=== PATIENT | male | born 1950 | race Caucasian/White ===

== ENCOUNTER 2021-11-24 11:08 | Emergency (ER) | payer OTHER ==
--- OUTSIDE RECORDS SUMMARY | 2021-11-24 11:12 | XMS REPORT | Continuity of Care Document ---
:1950 Author Organization [facility] t Address [address] [place] [id number] Care Team Providers Name Role Phone RYAN, Oli Primary Care Physician Unavailable BARRETT LUNA Attending Clinician Unavailable Barrett Luna MD Attending Clinician Oli Malagon MD Attending Clinician Rory BRAMBILA Attending Clinician Sidney BRAMBILA, K.H. Attending Clinician Deepthi Patton Attending Clinician Unavailable Deepthi Patton Admitting Clinician Unavailable Payers Payer Name Policy Type Policy Number Effective Date Expiration Date S ource MEDICARE PART A [id number] 2000 \T\ B 00:00:00 MCR MCR [id number] Problems Condition Condition Condition Status Onset Resolution Last Treating Co mments Source Name Details Category Date Date Treatment Clinician Date Heart Heart Disease Active Univers failure failure 8-06 ity of 00:00: [place] [facility] Troponin I Troponin I Disease Active U nivers above above 8-06 [place] of [place] Systolic Systolic Disease Active Unive rs CHF, acute CHF, acute 8-05 it y of [place] chronic [place] JANUARY (acute JANUARY (acute Disease Active U nivers kidney kidney 5-26 ity of injury) injury) 00:00: [place] [id number] Medical Branch 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 Added automatic ally from request for surgery [id number] Combined Combined Disease Active Overview: Un ailyn forms of forms of 7-14 Formattin ity of age-relate age-relate 00:00: g of this [place] d cataract d cataract 00 note Me dical of both of both might be Branch eyes eyes different from the original. Added automatic ally from request for surgery [id number] [place] Disease Active Univers frequently frequently 3-01 it y of 00:00: [place] [facility] Opioid Opioid Disease Active 2018-07 Univers intoxicati intoxicati 0-17 it y of on on 00:00: [place] [facility] Nonischemi Nonischemi Disease Active 2018-07 U nivers c c 0-17 ity of cardiomyop cardiomyop 00:00: [place] [facility] Branch Nonobstruc Nonobstruc Disease Active 2018-07 U nivers tive tive 0-17 ity of atheroscle atheroscle 00:00: [place]sis of rosis of 00 Medica l coronary coronary Branch artery artery PAF PAF Disease Active Univers (paroxysma (paroxysma 7-24 it y of l atrial l atrial 00:00: [place] fibrillati fibrillati 00 Me dical on) on) Branch Acute on Acute on Disease Active Unive rs chronic chronic 7-24 ity of systolic systolic 00:00: [place] and and 00 Medical diastolic diastolic Bran ch heart heart failure, failure, NYHA class NYHA class 3 3 Acute on Acute on Disease Active Unive rs chronic chronic 7-24 ity of diastolic diastolic 00:00[place] congestive congestive 00 Me dical heart heart Branch failure failure CHF CHF Disease Active Univers exacerbati exacerbati 7 it y of on on 00:00: [place] 00 Medical Branch Chest pain Chest pain Disease Active U nivers 2-19 ity of 00:00: [place] 00 Medical Branch NSTEMI NSTEMI Disease Active Univers (non-ST (non-ST 2-19 ity of elevated elevated 00:00: [place] myocardial myocardial 00 Me dical infarction infarction Br anch ) ) Elevated Elevated Disease Active Unive rs troponin I troponin I 2-18 it y of level level 00:00: [place] 00 Medical Branch Dyslipidem Dyslipidem Disease Active U nivers ia ia 2-18 ity of 00:00: [place] 00 Medical Branch Chronic Chronic Disease Active Univers anticoagul anticoagul 2-18 it y of ation ation 00:00: Medical Branch Myocardial Myocardial Disease Active U nivers infarct infarct 2-18 ity of 00:00: [place] 00 Medical Branch Atypical Atypical Disease Active Unive rs chest pain chest pain 2-17 it y of 00:00: [place] 00 Medical Branch Care plan Care plan Disease Active Overview: Univers discussed discussed 08-24 Formattin i ty of with with 00:00: g of this [place] patient patient 00 note Medical might be Branch different from the original. Care plan discussed with patient on visit with Dr.Colber curiel Surgery, Surgery, Disease Active Unive rs elective elective 6-22 ity of 00:00: [place] 00 Medical Branch Post-opera Post-opera Disease Active U nivers tive state tive state 6-07 it y of 00:00: [place] 00 [facility] Adrenal Adrenal Disease Active Univers mass, left mass, left 4- it y of 00:00: [place] 00 Medical Branch Hematoma Hematoma Disease Active Unive rs of hip of hip 4- ity of 00:00: [place] 00 Medical Branch Toxic Toxic Disease Active Univers metabolic metabolic 3-31 ity of encephalop encephalop 00:00: [place] 00 Medical Branch Bilateral Bilateral Disease Active Uni vers renal renal 3-06 ity of cysts cysts 00:00: [place] [facility] Kidney Kidney Disease Active Univers stones stones 3-06 ity of 00:00: [place] 00 Medical Branch Hepatomega Hepatomega Disease Active U nivers ly ly 3-06 ity of 00:00: [place] [facility] Syncope Syncope Disease Active 2015-07 Univers 2- ity of 00:00: [place] [facility] Recurrent Recurrent Disease Active 2015-07 Uni vers UTI UTI 0-03 ity of 00:00: [place] 00 Medical Branch History of History of Disease Active U nivers psychosis psychosis 9-30 ity of 00:00: [place] [facility] Depression Depression Disease Active U nivers 9-30 ity of 00:00: [place] 00 Medical Branch Altered Altered Disease Active Univers mental mental 8- ity of status status 00:00: [place] [facility] Branch Hip Hip Disease Active Univers fracture fracture 6-07 ity of 00:00: [place] 00 [facility] Branch Hip fx Hip fx Disease Active Univers 6-06 ity of 00:00: [place] 00 Medical Branch Actinic Actinic Disease Active Univers keratosis keratosis 7- ity of 00:00: [place] 00 Medical Branch Personal Personal Disease Active Unive rs history of history of 7 it y of other other 00:00: [place] malignant malignant 00 Medi [facility] neoplasm neoplasm Branch of skin of skin Essential Essential Disease Active Uni vers hypertensi hypertensi it y of on on [facility] NAT NAT Disease Active Univers (obstructi (obstructi it y of ve sleep ve sleep [place] apnea) apnea) Medical Branch Chronic Chronic Disease Active Univers pain pain ity of [facility] Coronary Coronary Disease Active Unive rs artery artery ity of disease disease [place] involving involving Medi [place] Branch coronary coronary artery of artery of [place] heart with heart with angina angina pectoris pectoris Dementia Dementia Disease Active Unive rs ity of [facility] COPD COPD Disease Active Univers (chronic (chronic ity of obstructiv obstructiv [place] Medical pulmonary pulmonary Bran ch disease) disease) Chronic Chronic Disease Active Univers a-fib a-fib ity of [facility] Iron Iron Disease Active Univers deficiency deficiency it y of anemia anemia [facility] Type 2 Type 2 Disease Active Univers diabetes diabetes ity of mellitus mellitus [place] with with Medical complicati complicati Br anch on, on, without without long-term long-term current current use of use of insulin insulin Hyperlipid Hyperlipid Disease Active U nivers emia emia ity of [facility] Stroke Stroke Disease Active Univers ity of [facility] Allergies, Adverse Reactions, Alerts Allergy Allergy Status Severity Reaction(s) Onset Inactive Treating Comm ents Source Name Type Date Date Clinician ADHESIVE DRUG Active Rash Univers TAPE-DOYLE 7- ity of ICONES 00:00: [place] 00 [facility] Adhesive Propensi Active Rash Univer s Tape-Doyle ty to 01-20 ity of icones adverse 00:00: [place] reaction 00 [facility] Social History Social Habit Start Date Stop Date Quantity Comments Source Exposure to 2021-11-06 2021-11-16 Not sure [facility] SARS-CoV-2 (event) 00:00:00 08:05:00 [place] [facility] Alcohol intake 2021-11-16 2021-11-16 Current University of 00:00:00 00:00:00 non-drinker of [facility] alcohol [place] (finding) Tobacco use and 2016-04-14 2016-04-14 Former user Universi ty of exposure 00:00:00 00:00:00 [facility] Cigarettes smoked 2016-04-14 2016-04-14 Univers ity of current (pack per 00:00:00 00:00:00 ) - Reported Branch Cigarette 2016-04-14 2016-04-14 University of pack-years 00:00:00 00:00:00 [facility] Tobacco Comment 2016-04-14 2016-04-14 Quit smoking 15 Univ ersity of 00:00:00 00:00:00 years ago, quit [place] Med ical chewing tobacco Branch 10 years ago Sex Ass[birth year] Universit y of 00:00:00 00:00:00 [facility] Smoking Status Start Date Stop Date Source Former smoker 2016-04-14 00:00:00 2016-04-14 00:00:00 Universi ty of [place] [facility] Medications Ordered Filled Start Stop Current Ordering Indication Dosage Frequency Signature Comments Components Source Medication Medication Date Date Medication? Clinician (SIG) Name Name aspirin 81 Yes 81mg Take 81 mg U nivers mg chewable 5-04 by mouth ity of tablet 08:28: daily. [place] [facility] Branch CHOLECALCIF Yes 1999[iU Take 2,000 Univers SARA, 5-04 ] Int'l ity of VITAMIN D3, 08:28: Units by Gigi duncan (D3-2000 03 mouth Medical ORAL) daily. Branch prednisoLON Yes [id number] 1[drp] Place 1 Univers E acetate 1 4-21 [id number] Drop in ity of % 00:00: right eye [place] ophthalmic 00 4 (four) Medic al suspension times Branch drops daily. ELIQUIS 5 Yes TAKE 1 Univer s mg tablet 3-02 TABLET BY ity o f 00:00: MOUTH [place] 00 TWICE A Medical DAY Branch POLYETHYLEN Yes [id number] MIX 17 Univers E GLYCOL 3-01 GRAMS IN 4 ity o f 3350 17 00:00: [employer] [place] gram/dose 00 WATER AND Medic al powder TAKE BY Branch MOUTH DAILY KCL 20 mEq Yes [id number] TAKE 1 Univers tablet 1-07 TABLET BY ity of 00:00: MOUTH [place] 00 EVERY DAY Medical Branch atorvastati 2020-07 Yes [id number] 20mg Take 1 Univers n 20 mg 2-31 tablet by ity of tablet 00:00: mouth at [place] 00 bedtime. Medical Branch MYRBETRIQ 2020-07 Yes [id number] TAKE 1 U nivers 25 mg 2-16 TABLET BY ity of tablet 00:00: MOUTH [place] 00 EVERY DAY Medical Branch metformin 2020-07 Yes [id number] 1000mg Take 2 Univers ER 500 mg 1-15 tablets by ity of 24 hr 00:00: mouth 2 [place] tablet 00 (two) Medical times [place] daily with meals. metOLazone 2020-07 Yes [id number] TAKE 1 Univers 2.5 mg 1-15 TABLET BY ity of tablet 00:00: MOUTH [place] 00 TWICE Medical WEEKLY Branch Sunday and sunday FENOFIBRATE 2020-07 Yes [id number] TAKE 1 Univers 54 mg 0-11 TABLET BY ity of tablet 00:00: MOUTH [place] 00 EVERY DAY Medical Branch DIGOXIN 125 2020-07 Yes TAKE 1 Univ ers mcg (0.125 0-11 TABLET BY ity of mg) tablet 00:00: MOUTH [place] 00 EVERY DAY Medical Branch MORPHINE Yes Indication Uni vers SULFATE 8-08 s: ity of (MORPHINE, 13:08: morphine [place] BULK, MISC) 40 pump, Medical unknown Branch rate OXcarbazepi Yes 300mg Take 300 U nivers ne 8-08 mg by ity of (TRILEPTAL) 13:08: mouth 2 [place] 300 mg 40 (two) Medical tablet times Branch daily. ALBUTEROL Yes [id number] INHALE 2 Univers 90 7-30 PUFFS ity of mcg/actuati 00:00: EVERY 4 [place] on inhaler 00 (FOUR) Medical HOURS Branch NEEDED FOR WHEEZING OR SHORTNESS OF BREATH. mirabegron Yes [id number] 50mg Take 1 U nivers (MYRBETRIQ) 3-17 tablet by ity of 50 mg 00:00: mouth [place] tablet 00 daily. Medical Branch lactulose Yes [id number] TAKE 30 Univers 10 gram/15 3-07 MILLILITER ity of mL solution 00:00: S BY MOUTH [place] 00 EVERY DAY Medical NEEDED Branch FOR CONSTIPATI ON FLUoxetine Yes [id number] 40mg Take 1 Univers 40 mg 2-18 capsule by ity of capsule 00:00: mouth [place] 00 daily. Medical Branch memantine Yes 1{tbl} Take 1 Univ ers 10 mg 4-25 tablet by ity of tablet 00:00: mouth 2 [place] 00 (two) Medical times Branch daily. Immunizations Ordered Filled Immunization Date Status Comments [facility] e Immunization Name Name SARS-COV-2 COVID-19 2020-12-22 Completed Unive rsity of PFIZER VACCINE 00:00:00 [facility] SARS-COV-2 COVID-19 2020-12-02 Completed Unive rsity of PFIZER VACCINE 00:00:00 [facility] Td 2016-04-26 Completed University of 00:00:00 [facility] Vital Signs Vital Name Observation Time Observation Value Comments Source Body weight 2021-11-16 13:27:[address] [facility] BMI 2021-11-16 13:27:00 27.26 kg/m2 [facility] Procedures This patient has no known procedures. Encounters Start End Encounter Admission Attending Care Care Encounter Source Date/Time Date/Time Type Type Clinicians Facility Department ID 2022-01-23 2022-01-23 [facility] [id number] Univers 14:15:00 14:15:00 [facility] [id number] [facility] 2022-01-23 2022-01-23 [facility] [id number] Univers 14:15:00 14:15:00 [facility] 2021-11-16 2021-11-16 Office [facility] [id number] Univers 08:30:00 08:45:00 [facility] [id number] it minnie Barrettrodrick DIEZ [id number] [place] [facility] [phone] [address] [facility] 2020-07-12 2020-07-12 [facility] [id number] 00:00:00 00:00:00 [facility] [id number] [place] [id number] Professio [phone] nal 044 Office Building One 2020-07-12 2020-07-12 Refmaria a Valadez [facility] [id number] 00:00:00 00:00:00 Isaias Shell [id number] Jaylon [id number] Professio [phone] nal 059 [facility] 2020-06-16 2020-06-16 [facility] [id number] 00:00:00 00:00:00 Chris Shell [id number] [place]lon [id number] Professio [phone] nal 059 Building 2020-06-14 2020-06-14 Case Manas [facility] [id number] 00:00:00 00:00:00 Management [facility] [id number] [place] [id number] Professio [phone] nal 044 Office [facility] 2020-06-14 2020-06-14 Telephone BARRETT Malagon [id number] 00:00:00 00:00:00 [facility] [id number] [place] [id number] Professio [phone] nal [facility] Office Building One 2020-06-04 2020-06-04 Office BARRETT Malagon [id number] 08:21:06 09:40:59 Visit [facility] [id number] [place] [id number] Professio [phone] nal 044 Office Building One 2019-05-02 2019-05-13 Inpatient 3 ROBERT Patton KAYCEE [id number]- 2019 ENCPL 19:53:00 11:14:00 Deepthi 1018 Results Test Description Test Time Test Comments Results Result Comments Source TROPONIN-I 2019-05-13 08:47:00 Test Item Value Reference Range Interpretation Comme nts TROPONIN-I (test code = 0.063 NG/ML 0.000-0.045 HH Nega tive: </= 0.045 Positive: TROPI) >/= 0.046 Corre lation with serial results, other cardiac markers, and cl inical findings is necessary to determine the clinical signi ficance of this result. Quantit ative results using different methodologies should not be c ompared to one another as nume rical results may varyby meth od.
[2021-11-24] MEDS ORDERED: TETANUS & DIPHTHERIA TOX,ADULT 0.5 ML VIAL ONE (11:24)
--- NOTE | 2021-11-24 11:53 | RAD REPORT ---
EXAM DESCRIPTION: CT - CTHCSPWOC - 11/24/2021 11:36 am CLINICAL HISTORY: Trauma, head and neck injury. fall COMPARISON: No comparisons TECHNIQUE: Axial 5 mm thick images of the head were obtained. Axial 2 mm thick images of the cervical spine were obtained with sagittal and coronal reconstruction images generated and reviewed. All CT scans are performed using dose optimization technique as appropriate and may include automated exposure control or mA/KV adjustment according to patient size. FINDINGS: CT HEAD WITHOUT CONTRAST: No acute hemorrhage, hydrocephalus or extra-axial collection is identified.Remote large right occipit al lobe infarct. Cerebral atrophy. Chronic small vessel ischemic changes. Remote right basal ganglia lacunar infarct suspected. Ethmoid air cell thickening is present.The calvarium is intact. CT CERVICAL SPINE WITHOUT CONTRAST: Presumed remote posttraumatic changes at the cervical spine including 6 millimeters anterolisthesis o f C2 on C3. 5 millimeters anterolisthesis of C4 on C5 however there is fusion across C4-5 and across portions of C5-6 which is chronic. Cervical spondylosis is noted. Emphysema in the lung apices. No ce rvical chain lymphadenopathy. IMPRESSION: No acute intracranial or cervical spine findings. Chronic changes as noted above.
--- NOTE | 2021-11-24 12:05 | ER ---
Nurse's Notes [facility] Name: Umer Hammonds Age: 71 yrs Sex: Male : 1950 Arrival Date: 11/24/2021 Time: 11:12 Bed 5 Private MD: Diagnosis: Fall on same level, unspecified;Skin tear Presentation: 11/24 11:13 Chief complaint: EMS states: pt fell while walking down the street. pt uses a walker [facility] and states that he was not dizzy just tripped. Coronavirus screen: Vaccine status: Patient reports receiving the 2nd dose of the covid vaccine. Client denies travel out of the [place] in the last 14 days. Ebola Screen: Patient negative for fever greater than or equal to 101.5 degrees Fahrenheit, and additional compatible Ebola Virus Disease symptoms Patient denies exposure to infectious person. Patient denies travel to an Ebola-affected area in the 21 days before illness onset. Initial Sepsis Screen: Does the patient meet any 2 criteria? No. Patient's initial sepsis screen is negative. Does the patient have a suspected source of infection? No. Patient's initial sepsis screen is negative. Risk Assessment: Do you want to hurt yourself or someone else? Patient reports no desire to harm self or others. Onset of symptoms was November 24, 2021. 11:13 Method Of Arrival: EMS: [facility] 11:13 Acuity: RAUL 4 6 Triage Assessment: 11:17 General: Appears in no apparent distress. Behavior is calm, cooperative. Pain: Denies [facility] pain. Historical: - Allergies: 11:17 Latex, Natural Rubber; [facility] - Immunization history:: Adult Immunizations unknown. - Social history:: Smoking status: Patient denies any tobacco usage or history of. Screenin:19 Abuse screen: Denies threats or abuse. Nutritional screening: No deficits noted. [facility] Tuberculosis screening: No symptoms or risk factors identified. Fall Risk Fall in past 12 months (25 points). Gait- Impaired (20 pts.). Mental Status- Oriented to own ability (0 pts). Assessment: 11:18 General: Appears in no apparent distress. Behavior is calm, cooperative. Pain: Denies [facility] pain. 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 wound cleaned and redressed. pt tolerated well. Vital Signs: 11:13 BP 124 / 75; Pulse 66; Resp 17; Pulse Ox 100% ; Weight 113.4 kg; Height 5 ft. 10 in. jh6 (177.80 cm); Pain 0/10; 12:20 BP 136 / 74; Pulse 64; Resp 17; Pulse Ox 100% ; Pain 0/10; jh6 11:13 Body Mass Index 35.87 (113.40 kg, 177.80 cm) 6 ED Course: 11:12 Patient arrived in ED. 5 11:12 Cara Aleman, RN is Primary Nurse. 6 11:12 Patient has correct armband on for positive identification. Bed in low position. Call [facility] light in reach. Side rails up X2. Warm blanket given. Pulse ox on. NIBP on. 11:14 Geronimo Anderson DO is Attending Physician. ms3 11:16 Triage completed. jh6 11:20 Bandage applied. jh6 11:20 No provider procedures requiring assistance completed. 6 11:[address] via stretcher. jh6 11:38 CT Head C Spine In Process Unspecified. EDMS Administered Medications: 11:26 Drug: Tetanus Toxoid,Adsorbed 0.5 ml {Spanish Translator: [employer]. Exp: 09/24/2023. Lot vg1 #: [id number]. } Route: IM; Site: left deltoid; Outcome: 12:05 Discharge ordered by . ms3 12:27 Patient left the ED. kj1 Signatures: Dispatcher [employer] EDMS Sravanthi Contreras [facility] Susan Winston kj1 Caprice Stallworth RN RN Geronimo Moura DO DO ms3 Cara Aleman, RN RN 6
--- NOTE | 2021-11-24 12:06 | EDPHYS ---
Physician Documentation [facility] Name: Umer Hammonds Age: 71 yrs Sex: Male : 1950 Arrival Date: 11/24/2021 Time: 11:12 Bed 5 Private MD: ED Physician Geronimo Anderson HPI: 11/24 12:06 This 71 yrs old Male presents to ER via EMS with complaints of Fall. ms3 12:06 Details of fall: The patient fell from an upright position, while standing. Onset: The ms3 symptoms/episode began/occurred acutely, 020 minute(s) ago. Associated injuries: The patient sustained right arm, abrasion. Severity of symptoms: At their worst the symptoms were very mild, in the emergency department the symptoms are unchanged. Historical: - Allergies: 11:17 Latex, Natural Rubber; jh6 - Immunization history:: Adult Immunizations unknown. - Social history:: Smoking status: Patient denies any tobacco usage or history of. ROS: 12:09 Constitutional: Negative for fever, and chills. Eyes: Negative for injury, pain, ms3 redness, and discharge, Neck: Negative for injury, pain, and swelling, Cardiovascular: Negative for chest pain, and palpitations. Respiratory: Negative for shortness of breath, cough, wheezing, and pleuritic chest pain, Abdomen/GI: Negative for abdominal pain, nausea, vomiting, diarrhea, and constipation, MS/Extremity: Negative for injury and deformity. 12:09 Skin: Positive for abrasion(s). Exam: 12:06 Head/Face: Normocephalic, atraumatic. Eyes: Pupils equal round and reactive to light, ms3 extra-ocular motions intact. Lids and lashes normal. Conjunctiva and sclera are non-icteric and not injected. Periorbital areas with no swelling, redness, or edema. Chest/axilla: Normal chest wall appearance and motion. Nontender with no deformity. Cardiovascular: Regular rate and rhythm with a normal S1 and S2. No gallops, murmurs, or rubs. Normal PMI, no JVD. No pulse deficits. Respiratory: Lungs have equal breath sounds bilaterally, clear to auscultation and percussion. No rales, rhonchi or wheezes noted. No increased work of breathing, no retractions or nasal flaring. Abdomen/GI: Soft, non-tender, with normal bowel sounds. No distension or tympany. No guarding or rebound. No evidence of tenderness throughout. Back: No spinal tenderness. No costovertebral tenderness. Full range of motion. 12:06 Skin: injury, abrasion(s), small abrasion noted, of the right arm. Vital Signs: 11:13 BP 124 / 75; Pulse 66; Resp 17; Pulse Ox 100% ; Weight 113.4 kg; Height 5 ft. 10 in. jh6 (177.80 cm); Pain 0/10; 12:20 BP 136 / 74; Pulse 64; Resp 17; Pulse Ox 100% ; Pain 0/10; jh6 11:13 Body Mass Index 35.87 (113.40 kg, 177.80 cm) 6 MDM: 11:14 Patient medically screened. ms3 12:06 Differential diagnosis: abrasion, closed head injury, contusion, fracture. Data ms3 reviewed: vital signs, nurses notes, radiologic studies, CT scan. Counseling: I had a detailed discussion with the patient and/or guardian regarding: the historical points, exam findings, and any diagnostic results supporting the discharge/admit diagnosis, radiology results, the need for outpatient follow up, to return to the emergency department if symptoms worsen or persist or if there are any questions or concerns that arise at home. 11/24 11:15 Order name: CT Head C Spine; Complete Time: 11:57 ms3 Administered Medications: 11:26 Drug: Tetanus Toxoid,Adsorbed 0.5 ml {Film Numberer: [employer]. Exp: 09/24/2023. Lot vg1 #: [id number]. } Route: IM; Site: left deltoid; Disposition Summary: 11/24/21 12:05 Discharge Ordered Location: Home ms3 Condition: Stable ms3 Diagnosis - Fall on same level, unspecified ms3 - Skin tear ms3 Followup: ms3 - With: Private Physician - When: 2 - 3 days - Reason: Recheck today's complaints Discharge Instructions: - Discharge Summary Sheet ms3 - Fall Prevention in the Home, Adult ms3 - Skin Tear ms3 Forms: - Medication Reconciliation Form ms3 - Thank You Letter ms3 - Antibiotic Education ms3 - Prescription Opioid Use ms3 Signatures: Dispatcher [employer] Caprice Melton RN RN vg1 Geronimo Anderson DO DO ms3 Cara Aleman, RN RN jh6 Corrections: (The following items were deleted from the chart) 12:09 12:06 Unable to obtain ROS due to baseline dementia, ms3 ms3
[2021-11-24 12:35] VITALS: O2SAT 100
[2021-11-24 12:37] VITALS: BP 136/74
== END 2021-11-24 12:27 | disposition home or self-care (01) ==
LOC: ER 11:08
DX: S40.811A Abrasion of right upper arm, initial encounter (principal); W18.30XA Fall on same level, unspecified, initial encounter; Z23 Encounter for immunization; Z91.040 Latex allergy status; Z91.048 Other nonmedicinal substance allergy status
CPT/HCPCS: 70450; 72125; 90471; 90714; 99284

== ENCOUNTER 2022-01-25 03:21 | Emergency (ER) | payer OTHER ==
[2022-01-25 04:54] LABS: Absolute Lymphocytes (CBC) 0.6 K/uL (0.7-4.9); Hematocrit 36.6 % (39.6-49.0); Lymphocytes % 6.2 % (15.3-44.8); MCV 83.1 fL (80-100); MPV 7.9 fL (7.6-11.3)
[2022-01-25 04:55] LABS: Protime INR 1.05
[2022-01-25 05:06] LABS: Albumin 3.6 g/dL (3.4-5.0); Bilirubin Direct 0.1 mg/dL (0-0.2); Bilirubin Total 0.4 mg/dL (0.2-1.0); Potassium 3.5 mmol/L (3.5-5.1)
--- NOTE | 2022-01-25 05:54 | EDPHYS ---
Physician Documentation [facility] Name: Umer Hammonds Age: 71 yrs Sex: Male : 1950 Arrival Date: 01/25/2022 Time: 03:29 Bed 20 Private MD: ED Physician Kev Montague HPI: 01/25 03:30 This 71 yrs old Male presents to ER via EMS with complaints of Fall. mh7 03:30 Details of fall: The patient fell from a supine position, out of bed. Onset: The 7 symptoms/episode began/occurred today, at an unknown time. Associated injuries: The patient sustained injury to the head, abrasion, contusion, hematoma. Severity of symptoms: At their worst the symptoms were moderate, earlier today, in the emergency department the symptoms have improved, moderately. The patient has experienced similar episodes in the past, several times. Historical: - Allergies: 03:40 Latex, Natural Rubber; bb - Home Meds: 03:40 apixaban 5 mg oral tab 1 tab 2 times per day [Active]; aspirin 81 mg Oral chew 1 tab bb once daily [Active]; atorvastatin 20 mg oral tab 1 tab once daily [Active]; cholecalciferol (vitamin D3) 1,000 unit oral 2 tab twice a day [Active]; cyanocobalamin (vitamin B-12) 1,000 mcg oral cap daily [Active]; fluoxetine 40 mg Oral cap 1 cap once daily [Active]; furosemide 40 mg Oral tab 1 tab 2 times per day [Active]; metolazone 2.5 mg oral tab 1 tab once daily [Active]; Namenda 10 mg oral tab 1 tab 2 times per day [Active]; oxcarbazepine 300 mg oral tab 1 tab 2 times per day [Active]; polyethylene glycol 3350 17 gram oral pwpk 1 packet once daily [Active]; tizanidine 4 mg oral tab 1 tab twice a day [Active]; 03:50 spironolactone 25 mg Oral tab 1 tab 2 times per day [Active]; sennosides 8.6 mg oral bb tab 2 tabs twice a day [Active]; - PMHx: 03:40 Congestive heart failure; Chronic obstructive lung disease; Depressive disorder; bb 03:47 Diabetes mellitus; Dementia; bb - PSHx: 03:47 Morphine pump; bb - Immunization history: Last tetanus immunization: unknown. - Social history:: Smoking status: unknown. ROS: 03:30 Constitutional: Negative for fever, chills, and weight loss, Eyes: Negative for injury, mh7 pain, redness, and discharge, ENT: Negative for injury, pain, and discharge, Neck: Negative for injury, pain, and swelling, Cardiovascular: Negative for chest pain, palpitations, and edema, Respiratory: Negative for shortness of breath, cough, wheezing, and pleuritic chest pain, Abdomen/GI: Negative for abdominal pain, nausea, vomiting, diarrhea, and constipation, Back: Negative for injury and pain, : Negative for injury, bleeding, discharge, and swelling, Neuro: Negative for headache, weakness, numbness, tingling, and seizure, Psych: Negative for depression, anxiety, suicide ideation, homicidal ideation, and hallucinations, Allergy/Immunology: Negative for hives, rash, and allergies, Endocrine: Negative for neck swelling, polydipsia, polyuria, polyphagia, and marked weight changes. Exam: 03:30 Constitutional: This is a well developed, well nourished patient who is awake, alert, mh7 and in no acute distress. 03:30 Eyes: Pupils equal round and reactive to light, extra-ocular motions intact. Lids and lashes normal. Conjunctiva and sclera are non-icteric and not injected. Cornea within normal limits. Periorbital areas with no swelling, redness, or edema. ENT: Nares patent. No nasal discharge, no septal abnormalities noted. Tympanic membranes are normal and external auditory canals are clear. Oropharynx with no redness, swelling, or masses, exudates, or evidence of obstruction, uvula midline. Mucous membranes moist. Neck: Trachea midline, no thyromegaly or masses palpated, and no cervical lymphadenopathy. Supple, full range of motion without nuchal rigidity, or vertebral point tenderness. No Meningismus. Chest/axilla: Normal chest wall appearance and motion. Nontender with no deformity. No lesions are appreciated. Cardiovascular: Regular rate and rhythm with a normal S1 and S2. No gallops, murmurs, or rubs. Normal PMI, no JVD. No pulse deficits. Respiratory: Lungs have equal breath sounds bilaterally, clear to auscultation and percussion. No rales, rhonchi or wheezes noted. No increased work of breathing, no retractions or nasal flaring. Abdomen/GI: Soft, non-tender, with normal bowel sounds. No distension or tympany. No guarding or rebound. No evidence of tenderness throughout. Back: No spinal tenderness. No costovertebral tenderness. Full range of motion. 03:30 Psych: Awake, alert, with orientation to person, place and time. Behavior, mood, and affect are within normal limits. 03:30 Head/face: Noted is abrasion(s), that are mild, of the top of head, contusion, that is superficial, of the top of head and forehead, hematoma, that is mild, of the forehead. 03:30 Musculoskeletal/extremity: Extremities: noted in the right hand: abrasion, ROM: intact in all extremities, Circulation is intact in all extremities. Sensation intact. Compartment Syndrome exam of affected extremity: is normal. no pain, no numbness, no tingling, no sensation deficit, no palor, no weak pulses, Joints: All joints appear normal with full range of motion. Tendon exam: specific tendon testing normal through active and passive range of motion 03:30 Skin: injury, abrasion(s), small abrasion noted, of the top of head and right hand, contusion(s), that are superficial, of the face. 03:30 Neuro: Orientation: is normal, Mentation: is normal, Memory: is normal, Cranial nerves: grossly normal, Cerebellar function: is grossly normal, Motor: is normal, Sensation: no obvious gross deficits, Gait: not tested. seizure activity, is not displayed by the patient, Abnormal movements: there are no abnormal movements. Vital Signs: 03:31 BP 116 / 78; Pulse 95; Resp 16 S; Temp 98.1(TE); Pulse Ox 96% on R/A; Weight 81.65 kg bb (R); Height 6 ft. 1 in. (185.42 cm) (R); Pain 0/10; 04:08 BP 130 / 98; Pulse 72; Resp 18 S; Pulse Ox 96% on R/A; bb 05:22 BP 108 / 67; Pulse 76; Resp 16 S; Pulse Ox 97% on R/A; bb 06:10 BP 130 / 77; Pulse 67; Resp 16 S; Pulse Ox 100% on R/A; bb 03:31 Body Mass Index 23.75 (81.65 kg, 185.42 cm) bb Ranson Coma Score: 03:31 Eye Response: spontaneous(4). Verbal Response: oriented(5). Motor Response: obeys bb commands(6). Total: 15. Trauma Score (Adult): 03:31 Eye Response: spontaneous(1); Verbal Response: oriented(1); Motor Response: obeys bb commands(2); Systolic BP: > 89 mm Hg(4); Respiratory Rate: 10 to 29 per min(4); Ranson Score: 15; Trauma Score: 12 04:06 Eye Response: spontaneous(1); Verbal Response: oriented(1); Motor Response: obeys bb commands(2); Systolic BP: > 89 mm Hg(4); Respiratory Rate: 10 to 29 per min(4); Alexia Score: 15; Trauma Score: 12 MDM: 05:50 Differential diagnosis: abrasion, closed head injury, contusion, fracture, sprain. Data [facility] reviewed: vital signs, nurses notes, EMS record, old medical records, lab test result(s), CBC, electrolytes, radiologic studies, CT scan, plain films. Data interpreted: Pulse oximetry: on room air is 97 %. Interpretation: normal. Counseling: I had a detailed discussion with the patient and/or guardian regarding: the historical points, exam findings, and any diagnostic results supporting the discharge/admit diagnosis, lab results, radiology results, the need for outpatient follow up. Response to treatment: the patient's symptoms have markedly improved after treatment. 05:54 Patient medically screened. [facility] 01/25 03:42 Order name: Basic Metabolic Panel; Complete Time: 05:10 [facility] 01/25 03:42 Order name: CBC with Diff; Complete Time: 05:10 [facility] 01/25 03:42 Order name: Type And Screen; Complete Time: 05:34 [facility] 01/25 03:42 Order name: LFT's; Complete Time: 05:10 [facility] 01/25 03:42 Order name: Protime (+inr); Complete Time: 05:10 [facility] 01/25 03:42 Order name: Ptt, Activated; Complete Time: 05:10 [facility] 01/25 03:42 Order name: CT Head C Spine [facility] 01/25 03:42 Order name: Labs collected and sent; Complete Time: 04:36 7 01/25 03:42 Order name: Hand Right 3 View XRAY 7 01/25 05:55 Order name: Splint - Wrist; Complete Time: 06:09 [facility] Administered Medications: 06:09 Not Given (Physician Discretion): Tylenol 1000 mg PO once bb Disposition Summary: 01/25/22 05:54 Discharge Ordered Location: Home [facility] Problem: new [facility] Symptoms: have improved [facility] Condition: Stable mh7 Diagnosis - Fall from bed, initial encounter mh7 - Contusion of scalp - head 7 - Contusion of right hand - wrist(01/25/22 05:57) [facility] Followup: 7 - With: Private Physician - When: 1 - 2 days - Reason: Worsening of condition, Recheck today's complaints, Continuance of care, Re-evaluation by your physician Followup: [facility] - With: Montez Daigle MD - When: 1 - 2 days - Reason: Worsening of condition, Recheck today's complaints Discharge Instructions: - Discharge Summary Sheet 7 - Wrist Splint, Adult, Wsoz-qw-Ergf 7 - Hand Contusion, Xtfr-et-Ylja 7 - Abrasion, Spwo-wa-Ehck 7 - Fall Prevention in the Home, Adult, Pmzq-bn-Ikzr 7 - Facial or Scalp Contusion, [id number]-pk-[id number] 7 Forms: - Medication Reconciliation Form 7 - Thank You Letter 7 - Antibiotic Education 7 - Prescription Opioid Use 7 - SBAR form mw2 Signatures: Dispatcher [employer] Swati Olea RN RN bb Kev Montague MD MD 7 Corrections: (The following items were deleted from the chart) 03:52 03:40 Home Meds: sennosides 25 mg oral tab 1 tabs 2 times per day; bb bb 05:57 05:54 Contusion of right hand [place] [id number]
--- NOTE | 2022-01-25 05:54 | ER ---
Nurse's Notes [facility] Name: Umer Hammonds Age: 71 yrs Sex: Male : 1950 Arrival Date: 01/25/2022 Time: 03:29 Bed 20 Private MD: Diagnosis: Fall from bed, initial encounter;Contusion of scalp-head;Contusion of right hand-wrist Presentation: 01/25 03:31 Chief complaint: EMS states: they were toned out for report of pt having fallen around bb 0100 but then developed a large hematoma to forehead so they sent him to be evaluated pt is on blood thinners. Care prior to arrival: None. Mechanism of Injury: Fall. Trauma event details: Injury occurred in the [facility], Injury occurred: [facility]. 03:31 Acuity: RAUL 3 bb 03:31 Method Of Arrival: EMS: [facility] bb 03:40 Coronavirus screen: At this time, the client does not indicate any symptoms associated bb with coronavirus-19. Ebola Screen: No symptoms or risks identified at this time. Initial Sepsis Screen: Does the patient meet any 2 criteria? No. Patient's initial sepsis screen is negative. Does the patient have a suspected source of infection? No. Patient's initial sepsis screen is negative. Risk Assessment: Do you want to hurt yourself or someone else? Patient reports no desire to harm self or others. Onset of symptoms was January 25, 2022. Historical: - Allergies: 03:40 Latex, Natural Rubber; bb - Home Meds: 03:40 apixaban 5 mg oral tab 1 tab 2 times per day [Active]; aspirin 81 mg Oral chew 1 tab bb once daily [Active]; atorvastatin 20 mg oral tab 1 tab once daily [Active]; cholecalciferol (vitamin D3) 1,000 unit oral 2 tab twice a day [Active]; cyanocobalamin (vitamin B-12) 1,000 mcg oral cap daily [Active]; fluoxetine 40 mg Oral cap 1 cap once daily [Active]; furosemide 40 mg Oral tab 1 tab 2 times per day [Active]; metolazone 2.5 mg oral tab 1 tab once daily [Active]; Namenda 10 mg oral tab 1 tab 2 times per day [Active]; oxcarbazepine 300 mg oral tab 1 tab 2 times per day [Active]; polyethylene glycol 3350 17 gram oral pwpk 1 packet once daily [Active]; tizanidine 4 mg oral tab 1 tab twice a day [Active]; 03:50 spironolactone 25 mg Oral tab 1 tab 2 times per day [Active]; sennosides 8.6 mg oral bb tab 2 tabs twice a day [Active]; - PMHx: 03:40 Congestive heart failure; Chronic obstructive lung disease; Depressive disorder; bb 03:47 Diabetes mellitus; Dementia; bb - PSHx: 03:47 Morphine pump; bb - Immunization history: Last tetanus immunization: unknown. - Social history:: Smoking status: unknown. Screenin:31 Abuse screen: Denies threats or abuse. Tuberculosis screening: No symptoms or risk bb factors identified. 03:48 Nutritional screening: No deficits noted. Fall Risk Fall in past 12 months (25 points). bb Secondary diagnosis (15 points) dementia, impaired mobility, IV access (20 points). Ambulatory Aid- None/Bed Rest/Nurse Assist (0 pts). Gait- Normal/Bed Rest/Wheelchair (0 pts) Mental Status- Overestimates/Forgets Limitations (15 pts.). Total Ring Fall Scale indicates High Risk Score (45 or more points). Fall prevention measures have been instituted. Side Rails Up X 2 Placed Close to Nursing Station. Primary Survey: 03:31 NO uncontrolled hemorrhage observed. A: The client is awake and alert. The airway is bb patent. Breathing/Chest: Spontaneous respiratory effort, equal unlabored respirations, breath sounds clear bilaterally, regular pattern, symmetrical chest rise and fall. Circulation: No external hemorrhage present. Regular and strong central pulse, skin warm/dry/normal color. Disability Client is alert. 03:49 Exposure/Environment: There is no evidence of uncontrolled external bleeding. A warming bb method has been applied: A warm blanket has been provided to the patient. 04:06 Reassessment Alertness and Airway: Awake and alert. The airway is patent. Breathing: bb Spontaneous respiratory effort, equal unlabored respirations, breath sounds clear bilaterally, regular pattern with symmetrical chest rise and fall. Circulation: No external hemorrhage noted. Regular and strong central pulse, skin warm/dry/normal color. Disability: Alert. Secondary Survey: 03:31 HEENT: Head Other large hematoma to right side of forehead. Gastrointestinal: No bb deficits noted. : No deficits noted. Musculoskeletal: Circulation, motion, and sensation intact. Assessment: 03:31 General: Appears in no apparent distress. slender, Behavior is calm, cooperative. Pain: bb Denies pain. Neuro: Level of Consciousness is awake, alert, obeys commands, Oriented to person, place, situation. Cardiovascular: Capillary refill < 3 seconds Patient's skin is warm and dry. Respiratory: Respiratory effort is even, unlabored, Respiratory pattern is regular. GI: Abdomen is non-distended. : Genitalia appear normal. Derm: Skin is fragile, is thin, has skin tears on hands, right elbow, scalp Skin is pink, warm \T\ dry. Musculoskeletal: Circulation, motion, and sensation intact. 03:57 Reassessment: pt to CT scan via stretcher accompanied by vp information technology. bb 04:07 Reassessment: pt returned from CT scan via stretcher accompanied by vp information technology. bb 05:22 Reassessment: pt sleeping, eyes closed, resp unlabored, awaiting diagnostic results. bb 06:11 Reassessment: Patient is alert, oriented x 3, equal unlabored respirations, skin bb warm/dry/pink. splint applied to right wrist. Pt verbalized understanding of and agrees to plan of care discharge instructions given pt awaiting EMS for transportation. 06:21 Reassessment: report called to receiving nurse from [facility]. bb 06:42 Reassessment: EMS at bedside for transport of pt to [facility]. Pt is bb A\T\O x 3, resp unlabored, discharge packet given to EMS. Vital Signs: 03:31 BP 116 / 78; Pulse 95; Resp 16 S; Temp 98.1(TE); Pulse Ox 96% on R/A; Weight 81.65 kg bb (R); Height 6 ft. 1 in. (185.42 cm) (R); Pain 0/10; 04:08 BP 130 / 98; Pulse 72; Resp 18 S; Pulse Ox 96% on R/A; bb 05:22 BP 108 / 67; Pulse 76; Resp 16 S; Pulse Ox 97% on R/A; bb 06:10 BP 130 / 77; Pulse 67; Resp 16 S; Pulse Ox 100% on R/A; bb 03:31 Body Mass Index 23.75 (81.65 kg, 185.42 cm) bb Spickard Coma Score: 03:31 Eye Response: spontaneous(4). Verbal Response: oriented(5). Motor Response: obeys bb commands(6). Total: 15. Trauma Score (Adult): 03:31 Eye Response: spontaneous(1); Verbal Response: oriented(1); Motor Response: obeys bb commands(2); Systolic BP: > 89 mm Hg(4); Respiratory Rate: 10 to 29 per min(4); Spickard Score: 15; Trauma Score: 12 04:06 Eye Response: spontaneous(1); Verbal Response: oriented(1); Motor Response: obeys bb commands(2); Systolic BP: > 89 mm Hg(4); Respiratory Rate: 10 to 29 per min(4); Spickard Score: 15; Trauma Score: 12 ED Course: 03:29 Patient arrived in ED. mw2 03:30 Kev Montague MD is Attending Physician. 7 03:30 Swati Aldana, RN is Primary Nurse. bb 03:31 Patient has correct armband on for positive identification. Bed in low position. Call bb light in reach. Side rails up X2. Patient maintains SpO2 saturation greater than 95% on room air. Client placed on continuous cardiac and pulse oximetry monitoring. NIBP monitoring applied. 03:31 Patient maintains SpO2 saturation greater than 95% on room air. bb 03:32 Triage completed. 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 03:49 Thermoregulation: warm blanket given to patient. bb 03:59 Hand Right 3 View XRAY In Process Unspecified. EDMS 04:12 CT Head C Spine In Process Unspecified. EDMS 04:20 Initial lab(s) drawn, by me, sent to lab. Missed attempt(s): 20 gauge in right forearm. bb Bleeding controlled, band aid applied, catheter tip intact. 04:25 T\T\S collected, blood band applied to patient. Inserted saline lock: 22 gauge in left bb antecubital area, using aseptic technique. 04:30 Lab(s) recollected, by me, sent to lab. bb 05:55 Montez Daigle MD is Referral Physician. 7 06:10 Velcro wrist splint applied to right wrist. bb 06:11 No provider procedures requiring assistance completed. IV discontinued, intact, bb bleeding controlled, No redness/swelling at site. Pressure dressing applied. Administered Medications: 06:09 Not Given (Physician Discretion): Tylenol 1000 mg PO once bb Medication: 06:10 VIS not applicable for this client. bb Intake: 03:31 PO: 0ml; Total: 0ml. bb Outcome: 05:54 Discharge ordered by MD. manriquez 06:11 Discharged to to [facility] bb 06:11 Condition: stable 06:11 Discharge instructions given to patient, Instructed on discharge instructions, follow up and referral plans. Demonstrated understanding of instructions, follow-up care. 06:43 Patient left the ED. bb Signatures: Dispatcher [employer] Swati Olea RN RN bb Rory Streeter mw2 Kev Montague MD MD mh7 Corrections: (The following items were deleted from the chart) 03:52 03:40 Home Meds: sennosides 25 mg oral tab 1 tabs 2 times per day; krystal rice
[2022-01-25 06:56] VITALS: TEMP 98.1
[2022-01-25 07:01] VITALS: BP 130/77; O2SAT 100
--- NOTE | 2022-01-25 13:42 | RAD REPORT ---
EXAM DESCRIPTION: RAD - Hand Right 3 View - 01/25/2022 3:57 am CLINICAL HISTORY: The patient is 71 years old and is Male; trauma TECHNIQUE: Three views of the right hand. COMPARISON: No relevant prior studies available. FINDINGS: Bones/joints: No acute fracture. No dislocation. Chronic subchondral changes in the ulna/ulnar styloid. Mild degenerative changes in the hand. Soft tissues: Dorsal soft tissue swelling at the wrist. No radiopaque foreign body. IMPRESSION: Dorsal soft tissue swelling at the wrist. Electronically signed by: Hazel Pak MD 01/25/2022 4:43 AM CDT Due to temporary technical issues with the PACS/Fluency reporting system, reports are being signed by the in house radiologists without review as a courtesy to insure prompt reporting. The interpreting radiologist is fully responsible for the content of the report.
--- NOTE | 2022-01-25 13:44 | RAD REPORT ---
EXAM DESCRIPTION: CT - Head C Spine Mpr Wo Con - 01/25/2022 6:38 am CLINICAL HISTORY: The patient is 71 years old and is Male; trauma TECHNIQUE: Axial computed tomography images of the head/brain and cervical spine without intravenous contrast. Sagittal and coronal reformatted images were created and reviewed. This CT exam was pe rformed using one or more of the following dose reduction techniques: automated exposure control, a djustment of the mA and/or kV according to patient size, and/or use of iterative reconstruction techn ique. COMPARISON: November 24, 2021. FINDINGS: Brain: Mild age related periventricular white matter microangiopathic changes. 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 No hemorrhage. Ventricles: Unremarkable. No ventriculomegaly. Skull: No acute fracture. Sinuses: Unremarkable as visualized. No acute sinusitis. Mastoid air cells: Unremarkable as visualized. No mastoid effusion. Vertebrae: No acute cervical spine fracture identified. Reversal of the normal lordotic curvature of the spine, chronic. 5 to 6 mm anterolisthesis C2 on C3 and anterolisthesis C4 on C5, also chronic. Multilevel degenerative facet arthropathy. Discs/spinal canal/neural foramina: Degenerative disc disease C2-3, and C4-5 to C6-7. No spinal canal stenosis. Soft tissues: Right forehead hematoma. Pleural space: No apical pneumothorax. IMPRESSION: 1. Right forehead hematoma. 2. No intracranial hemorrhage. No acute skull fracture. 3. Mild age related periventricular white matter microangiopathic changes. Old infarct within the r ight MESH CUTTER vascular distribution. 4. No acute cervical spine fracture identified. 5. Reversal of the normal lordotic curvature of the spine, chronic. 5 to 6 mm anterolisthesis C2 on C3 and anterolisthesis C4 on C5, also chronic. 6. Multilevel degenerative changes as above. Electronically signed by: Hazel Pak MD 01/25/2022 4:32 AM CDT Due to temporary technical issues with the PACS/Fluency reporting system, reports are being signed by the in house radiologists without review as a courtesy to insure prompt reporting. The interpreting radiologist is fully responsible for the content of the report.
== END 2022-01-25 06:43 | disposition home or self-care (01) ==
LOC: ER 03:21
DX: S00.03XA Contusion of scalp, initial encounter (principal); S60.211A Contusion of right wrist, initial encounter; W06.XXXA Fall from bed, initial encounter; Z91.040 Latex allergy status; Z91.048 Other nonmedicinal substance allergy status; E11.9 Type 2 diabetes mellitus without complications; I50.9 Heart failure, unspecified; F03.90 Unspecified dementia, unspecified severity, without behavioral disturbance, psychotic disturbance, mood disturbance, and anxiety; Z79.82 Long term (current) use of aspirin
CPT/HCPCS: 36415; 70450; 72125; 80048; 80076; 85025; 85610; 85730; 86850; 86900; 86901

== ENCOUNTER 2022-02-04 03:30 | Emergency (ER) | payer OTHER ==
--- OUTSIDE RECORDS SUMMARY | 2022-02-04 03:37 | XMS REPORT | Continuity of Care Document ---
:1950 Author Organization [facility] t Address [address] [place] [address] Care Team Providers Name Role Phone Oli Ramirez Primary Care Physician DUSTIN Attending Clinician Unavailable JARRED KMalia Attending Clinician Unavailable Rory BRAMBILA Attending Clinician Kuldip HANSEN B Attending Clinician Unavailable CORRINA Attending Clinician Unavailable Katya Kim Attending Clinician Corrina BRAMBILA Attending Clinician Oli Ramirez Attending Clinician Oli Malagon MD Attending Clinician Jarred BRAMBILA, K.H. Attending Clinician Deepthi Patton Attending Clinician Unavailable CORRINA Admitting Clinician Unavailable Corrina BRAMBILA Admitting Clinician Deepthi Patton Admitting Clinician Unavailable Payers Payer Name Policy Type Policy Number Effective Date Expiration Date Jean Pierre medrano MEDICARE PART A [id number] 2000 \\T\\ B 00:00:00 MCR MCR [id number] Problems Condition Condition Condition Status Onset Resolution Last Treating Co mments Source Name Details Category Date Date Treatment Clinician Date Pulmonary Pulmonary Disease Active Uni vers hypertensi hypertensi 5-28 it y of on on 00:00: [place] [facility] Pneumonia Pneumonia Disease Active Uni vers 5-14 ity of 00:00: [place] [facility] Heart Heart Disease Active Univers failure failure 8-06 ity of 00:00: [place] [facility] Troponin I Troponin I Disease Active U nivers above above 8-06 it[place] of reference [place] 00:[place] range 00 [place] Systolic Systolic Disease Active Unive rs CHF, acute CHF, acute 8-05 it y of on chronic [place] chronic 00:[place]: [place] [facility] JANUARY (acute JANUARY (acute Disease Active U nivers kidney kidney 5-26 ity of injury) injury) 00:00: [place] [id number] Medical Branch 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 Added automatic ally from request for surgery [id number] [place] Disease Active 2019- Univers frequently frequently 3-01 it y of 00:00: [place] [facility] Opioid Opioid Disease Active 2018-07 Univers intoxicati intoxicati 0-17 it y of on on 00:00: [place] [facility] Nonischemi Nonischemi Disease Active 2018-07 U nivers c c 0-17 ity of cardiomyop cardiomyop 00:00: [place] athy athy [facility] Nonobstruc Nonobstruc Disease Active 2018-07 U nivers tive tive 0-17 ity of atheroscle atheroscle 00:00: [place] rosis of rosis of 00 Medica l coronary coronary Branch artery artery PAF PAF Disease Active Univers (paroxysma (paroxysma 02-05 it y of l atrial l atrial 00:00: [place] fibrillati fibrillati 00 Me dical on) on) Branch Acute on Acute on Disease Active Unive rs chronic chronic 7-24 ity of systolic systolic 00:00: [place] and and 00 Medical diastolic diastolic Bran ch heart heart failure, failure, NYHA class NYHA class 3 3 Acute on Acute on Disease Active Unive rs chronic chronic 7 ity of diastolic diastolic 00:00[place] congestive congestive 00 Me dical heart heart Branch failure failure CHF CHF Disease Active Univers exacerbati exacerbati 7 it y of on on 00:00: [place] [facility] Chest pain Chest pain Disease Active U nivers 2-19 ity of 00:00: [place] [facility] NSTEMI NSTEMI Disease Active Univers (non-ST (non-ST 2-19 ity of elevated elevated 00:00: [place] myocardial myocardial 00 Me dical infarction infarction Br anch ) ) Elevated Elevated Disease Active Unive rs troponin I troponin I 2-18 it y of level level 00:00: [place] [facility] Dyslipidem Dyslipidem Disease Active U nivers ia ia 2-18 ity of 00:00: [place] 00 Medical Branch Chronic Chronic Disease Active Univers anticoagul anticoagul 2-18 it y of ation ation 00:00: [place] [facility] Myocardial Myocardial Disease Active U nivers infarct infarct 2-18 ity of 00:00: [place] 00 Medical Branch Atypical Atypical Disease Active Unive rs chest pain chest pain 2-17 it y of 00:00: [place] [facility] Care plan Care plan Disease Active Overview: Univers discussed discussed 08-24 Formattin i ty of with with 00:00: g of this [place] patient patient 00 note Medical might be Branch different from the original. Care plan discussed with patient on visit [address]Colber curiel Surgery, Surgery, Disease Active Unive rs elective elective 01-04 ity of 00:00: [place] [facility] Post-opera Post-opera Disease Active U nivers tive state tive state 6 it y of 00:00: [place] [facility] Adrenal Adrenal Disease Recurre Univer s mass, left mass, left nce 10-14 it y of 00:00: [place] [facility] Hematoma Hematoma Disease Active Unive rs of hip of hip 10-14 ity of 00:00: [place] [facility] Toxic Toxic Disease Active Univers metabolic metabolic 3-31 ity of encephalop encephalop 00:00: [place] at[place] [facility] Bilateral Bilateral Disease Active Uni vers renal renal 3-06 ity of cysts cysts 00:00: [place] [facility] Kidney Kidney Disease Active Univers stones stones 3-06 ity of 00:00: [place] [facility] Hepatomega Hepatomega Disease Active U nivers ly ly 3-06 ity of 00:00: [place] [facility] Syncope Syncope Disease Active 2015-07 Univers 2- ity of 00:00: [place] [facility] Recurrent Recurrent Disease Active 2015-07 Uni vers UTI UTI 0-03 ity of 00:00: [place] [facility] History of History of Disease Active U nivers psychosis psychosis 9-30 ity of 00:00: [place] [facility] Depression Depression Disease Active U nivers 9-30 ity of 00:00: [place] [facility] Altered Altered Disease Active Univers mental mental 8- ity of status status 00:00: [place] [facility] Hip Hip Disease Active Univers fracture fracture 6-07 ity of 00:00: [place] [facility] Hip fx Hip fx Disease Active Univers 6-06 ity of 00:00: [place] [facility] Actinic Actinic Disease Active Univers keratosis keratosis 7-08 ity of 00:00: [place] 00 Medical Branch Personal Personal Disease Active Unive rs history of history of 7-08 it y of other other 00:00: [place] malignant malignant [facility] neoplasm neoplasm Branch of skin of skin Essential Essential Disease Active Uni vers hypertensi hypertensi it y of on on [facility] [place] [facility] NAT NAT Disease Active Univers (obstructi (obstructi it y of ve sleep ve sleep [place] apnea) apnea) Medical [place] Chronic Chronic Disease Active Univers pain pain ity of [facility] [place] [facility] Coronary Coronary Disease Active Unive rs artery artery ity of disease disease [place] involving involving [facility] [place] Branch coronary coronary artery of artery of [place] heart with heart with angina angina pectoris pectoris Dementia Dementia Disease Active Unive rs ity of [facility] [place] [facility] COPD COPD Disease Active Univers (chronic (chronic ity of obstructiv obstructiv [place] e e Medical pulmonary pulmonary Bran ch disease) disease) Chronic Chronic Disease Active Univers a-fib a-fib ity of [facility] [place] [facility] Iron Iron Disease Active Univers deficiency deficiency it y of anemia anemia [facility] [place] [facility] Type 2 Type 2 Disease Active Univers diabetes diabetes ity of mellitus mellitus [place] with with Medical complicati complicati Br anch on, on, without without long-term long-term current current use of use of insulin insulin Hyperlipid Hyperlipid Disease Active U nivers emia emia ity of [facility] [place] [facility] Stroke Stroke Disease Active Univers ity of [facility] [place] [facility] Allergies, Adverse Reactions, Alerts Allergy Allergy Status Severity Reaction(s) Onset Inactive Treating Comm ents Source Name Type Date Date Clinician Latex Propensi Active Rash Univers ty to 5-27 ity of adverse 00:00: [place] reaction [facility] LATEX DRUG Active Rash Univers INGREDI 5-27 ity of 00:00: [place] [facility] ADHESIVE DRUG Active Rash Univers TAPE-DOYLE 7-08 ity of ICONES 00:00: [facility] Adhesive Propensi Active Rash Univer s Tape-Doyle ty to 7-08 ity of icones adverse 00:00: [place] reaction 00 [facility] Social History Social Habit Start Date Stop Date Quantity Comments Source History of tobacco Cigarette Smoker University of use [facility] [place] [facility] Alcohol intake 2022-01-04 2022-01-04 Current University of 00:00:00 00:00:00 non-drinker of [facility] [place] alcohol Branch (finding) Exposure to 2021-12-24 2022-01-03 Not sure [facility] SARS-CoV-2 (event) 00:00:00 23:32:00 [facility] [place] [facility] Education 2021-12-09 2021-12-09 21 University of 00:00:00 00:00:00 [facility] [place] [facility] Tobacco use and 2017-09-03 2017-09-03 Former smokeless Uni versity of exposure 00:00:00 00:00:00 tobacco user [facility] Branch Cigarettes smoked 2017-09-03 2017-09-03 Univers ity of current (pack per 00:00:00 00:00:00 [facility] ) - Reported Branch Cigarette 2017-09-03 2017-09-03 University of pack-years 00:00:00 00:00:00 [facility] [place] [facility] Tobacco Comment 2016-04-14 2016-04-14 Quit smoking 15 Univ ersity of 00:00:00 00:00:00 years ago, quit [facility] ical chewing tobacco Branch 10 years ago Sex [birth year] At [birth year] Universit y of 00:00:00 00:00:00 [facility] [place] [facility] Smoking Status Start Date Stop Date Source Ex-smoker 2017-09-03 00:00:00 2017-09-03 00:00:00 [facility] Medications Ordered Filled Start Stop Current Ordering Indication Dosage Frequency Signature Comments Components Source Medication Medication Date Date Medication? Clinician (SIG) Name Name faith Yes [id number] 20mg Take 1 Univers n 20 mg 7-18 tablet by ity of tablet 00:00: mouth at [place] 00 bedtime. Medical Branch MORPHINE Yes Indication Uni vers SULFATE 6-27 s: ity of (MORPHINE, 17:10: morphine [place] as BULK, MISC) 19 pump, Medical unknown Branch rate aspirin 81 Yes 81mg Take 81 mg U nivers mg chewable 6-27 by mouth ity of tablet 17:10: daily. [address] Branch CHOLECALCIF Yes 1999[iU Take 2,000 Univers BRYAN, 6- ] Int'l ity of VITAMIN D3, 17:10: Units [place] (D3-1999 19 mouth Medical ORAL) daily. Branch OXcarbazepi Yes 300mg Take 300 U nivers ne 6-27 mg by ity of (TRILEPTAL) 17:10: mouth 2 [place] 300 mg 19 (two) Medical tablet times Branch daily. MORPHINE Yes Indication Uni vers SULFATE 6-27 s: ity of (MORPHINE, 17:10: morphine [place] as BULK, MISC) 19 pump, Medical unknown Branch rate aspirin 81 0 Yes 81mg Take 81 mg U nivers mg chewable 6-27 by mouth ity of tablet 17:10: daily. [address] Branch CHOLECALCIF Yes 1999[iU Take 2,000 Univers BRYAN, 6-27 ] Int'l ity of VITAMIN D3, 17:10: Units [place] (D3-1999 19 mouth Medical ORAL) daily. Branch OXcarbazepi Yes 300mg Take 300 U nivers ne 6-27 mg by ity of (TRILEPTAL) 17:10: mouth 2 [place] 300 mg 19 (two) Medical tablet times Branch daily. MORPHINE Yes Indication Uni vers SULFATE 6-27 s: ity of (MORPHINE, 17:10: morphine [place] BULK, MISC) 19 pump, Medical unknown Branch rate aspirin 81 0 Yes 81mg Take 81 mg U nivers mg chewable 6-27 by mouth ity of tablet 17:10: daily. [address] CHOLECALCIF Yes 1999[iU Take 2,000 Univers BRYAN, 6-27 ] Int'l ity of VITAMIN D3, 17:10: Units [place] (D3 19 mouth Medical ORAL) daily. Branch OXcarbazepi Yes 300mg Take 300 U nivers ne 6-27 mg by ity of (TRILEPTAL) 17:10: mouth 2 [place] 300 mg 19 (two) Medical tablet times Branch daily. artificial Yes 1[drp] 1 Drop, Un ailyn tears(hypro 01-09 Both Eyes, it y of mellose) 16:47: PRN, [place] (ISOPTO-TEA 13 Starting Medi ayan RS) 0.5 % on Mon Branch ophthalmic 01/09/22 at drops 1 1147, Drop Until Discontinu ed, Routine, Dry eyes iron 2021- No 200mg 200 mg, IV Unive rs sucrose 01-08 Infusion, ity of (VENOFER) 23:15: 01:44 ONCE, [place] 200 mg in 00 :00 Administer Medi ayan NaCl 0.9% over 2.5 Branch (NS) 100 mL Hours, On infusion 01/08/22 at 1815, For 1 dose KCL 2021- No 40meq 40 mEq, Univers (KLOR-CON 01-08 Oral, ity of M20) tablet 23:15: 23:14 ONCE, 1 [place] 40 mEq 00 :00 dose, On Medical Sun Branch 01/08/22 at 1815, Routine lidocaine Yes 1{patch 1 Patch, U nivers (LIDODERM) 01-08 } Topical, ity o f 5 % (700 19:00: Administer [place] mg/patch) 00 over 12 Medical patch 1 Hours, Branch Patch DAILY, First dose on 01/08/22 at 1400, Until Discontinu ed, Routine metOLazone Yes 2.5mg 2.5 mg, Uni vers (ZAROXOLYN) -25 Oral, QAM ity of tablet 2.5 13:00: WITH [place] mg 00 BREAKFAST, Medical First dose Branch (after last modificati on) on 01/07/22 at 0800, Until Discontinu ed, Routine vitamin Yes [id number] 1000ug Take 1 U nivers B-12 1,000 6-25 tablet by ity of mcg tablet 00:00: mouth [place] 00 daily. Medical Branch vitamin Yes [id number] 1000ug Take 1 U nivers B-12 1,000 6-25 tablet by ity of mcg tablet 00:00: mouth [place] 00 daily. Medical Branch vitamin Yes [id number] 1000ug Take 1 U nivers B-12 1,000 6-25 tablet by ity of mcg tablet 00:00: mouth [place] 00 daily. Medical Branch spironolact 2021- Yes [id number] 25mg Take 1 Univers one 25 mg 6-25 07-26 tablet by ity of tablet 00:00: 04:59 mouth 2 [place] 00 :00 (two) Medical times Branch daily for 30 days. metOLazone 2021- Yes [id number] 2.5mg Take 1 Univers 2.5 mg 6-25 07-26 tablet by ity of tablet 00:00: 04:59 mouth [place] 00 :00 daily with Medical breakfast [place] for 30 days. spironolact 2021- Yes [id number] 25mg Take 1 Univers one 25 mg 6-25 07-26 tablet by ity of tablet 00:00: 04:59 mouth 2 [place] 00 :00 (two) Medical times [place] daily for 30 days. metOLazone 2021- Yes [id number] 2.5mg Take 1 Univers 2.5 mg 6-25 07-26 tablet by ity of tablet 00:00: 04:59 mouth [place] 00 :00 daily with Medical breakfast [place] for 30 days. spironolact 2021- Yes [id number] 25mg Take 1 Univers one 25 mg 6-25 07-26 tablet by ity of tablet 00:00: 04:59 mouth 2 [place] 00 :00 (two) Medical times [place] daily for 30 days. metOLazone 2021- Yes [id number] 2.5mg Take 1 Univers 2.5 mg 6-25 07-26 tablet by ity of tablet 00:00: 04:59 mouth [place] 00 :00 daily with [facility] breakfast [place] for 30 days. furosemide Yes 40mg 40 mg, Unive rs (LASIX) 6-24 Oral, BID ity of tablet 40 22:00: MEALS, [place] mg 00 First dose Medical on Fri [place] 01/06/22 at 1700, Until Discontinu ed, Routine KCL 2021- No 20meq 20 mEq, Univers (KLOR-CON 01-06- Oral, BID, ity of M20) tablet 13:51: 15:55 First dose [place] 20 mEq 18 :55 on Fri Medical 01/06/22 at Branch 2000, Until Discontinu ed, Routine KCL 2021- No 40meq 40 mEq, Univers (KLOR-CON 01-06- Oral, ity of M20) tablet 13:45: 14:17 ONCE, 1 [place] 40 mEq 00 :00 dose, On Medical Fri [place] 01/06/22 at 0845, Routine spironolact 2022-0 Yes 25mg 25 mg, Univ ers one 01-05 Oral, BID, ity of (ALDACTONE) 14:15: First dose [place] tablet 25 00 (after Medical mg last Branch modificati on) on Yolanda 01/05/22 at 0915, Until Discontinu ed, Routine cyanocobala 2021- Yes 1000ug 1,000 mcg, Univers min 01-05 Subcutaneo ity of (VITAMIN 14:15: 13:59 us, DAILY, [place] B12) 00 :00 7 doses, Medical injection First dose Bran ch 1,000 mcg on Sun01/05/22 at 0915, Last dose on Sun01/11/22 at 0900, Routine KCL 2021- No 40meq 40 mEq, Univers (KLOR-CON 01-05 Oral, ity of M20) tablet 13:30: 15:11 ONCE, 1 [place] 40 mEq 00 :00 dose, On Medical [place] Branch 01/05/22 at 0830, Routine glucagon Yes 1mg 1 mg, Univers (GLUCAGEN 01-04 Intramuscu ity of DIAGNOSTIC 21:25: lar, PRN, [place] KIT) 32 Starting Medical injection 1 on Sun Branch mg 01/04/22 at 1625, Until Discontinu ed, BERNY, Blood Glucose < or = 70 mg/dL and patient is unable to swallow or has mental changes. furosemide 2021- No 5mg/h 5 mg/hr Un ailyn (LASIX) 200 01-04-24 (2.5 ity of mg in NaCl 16:00: 15:19 mL/hr), IV [place] 0.9% (NS) 00 :39 Infusion, Medic al 100 mL CONTINUOUS Branch infusion , Starting on Sun01/04/22 at 1100
Do Not Refrigerat e.
FLUoxetine Yes 40mg 40 mg, Unive rs (PROZAC) 01-04 Oral, ity of capsule 40 14:00: DAILY, [place] mg 00 First dose Medical on Sun Branch 01/04/22 at 0900, Until Discontinu ed, Routine polyethylen Yes 17g 17 g, Unive rs e glycol 01-04 Oral, ity of 3350 powder 14:00: DAILY, [place] 17 g 00 First dose Medical on Sun [place] 01/04/22 at 0900, Until Discontinu ed cholecalcif 0 Yes 2000U 2,000 Univ ers bryan 01-04 Units, ity of (vitamin 14:00: Oral, [place] D3) tablet 00 DAILY, Medical 2,000 Units First dose Br anch on Sun01/04/22 at 0900, Until Discontinu ed aspirin 0 Yes 81mg 81 mg, Univers chewable 01-04 Oral, ity of tablet 81 14:00: DAILY, [place] mg 00 First dose Medical on Sun Branch 01/04/22 at 0900, Until Discontinu ed, Routine KCL 2021- No 40meq 40 mEq, Univers (KLOR-CON 01-04 Oral, ity of M20) tablet 14:00: 13:24 ONCE, 1 [place] 40 mEq 00 :00 dose, On Medical [facility] 01/04/22 at 0900, Routine metOLazone 2021- No 5mg 5 mg, Unive rs (ZAROXOLYN) 01-04 Oral, QAM it y of tablet 5 mg 13:00: 15:19 WITH [place] 00 :39 BREAKFAST, Medical First dose Branch on Sun01/04/22 at 0800, Until Discontinu ed, Routine docusate Yes 100mg 100 mg, Unive rs (COLACE) 01-04 Oral, BID, ity o f capsule 100 04:00: First dose [place] mg 00 on [facility] 01/03/22 at Branch 2300, Until Discontinu ed, Routine sennosides Yes 8.6mg 8.6 mg, Uni vers (SENOKOT) 01-04 Oral, BID, ity of tablet 8.6 04:00: First dose [place] mg 00 on [facility] 01/03/22 at Branch 2300, Until Discontinu ed, Routine tiZANidine Yes 4mg 4 mg, Univer s (ZANAFLEX) 01-04 Oral, BID, ity of tablet 4 mg 03:45: First dose [place] 00 on [facility] 01/03/22 at Branch 2245, Until Discontinu ed, Routine spironolact 2021- No 25mg 25 mg, Uni vers one 01-04 Oral, ity of (ALDACTONE) 03:45: 14:04 DAILY, [place] tablet 25 00 :06 First dose Medi ayan mg on [facility] 01/03/22 at 2245, Until Discontinu ed, Routine atorvastati Yes 20mg 20 mg, Univ ers n (LIPITOR) 01-04 Oral, QHS, it y of tablet 20 02:00: First dose [place] mg 00 on [facility] 01/03/22 at Branch 2100, Until Discontinu ed, Routine OXcarbazepi Yes 300mg 300 mg, Un ailyn ne 01-04 Oral, BID, ity of (TRILEPTAL) 01:00: First dose [place] tablet 300 00 on [facility] 01/03/22 at Branch 2000, Until Discontinu ed, Routine memantine Yes 10mg 10 mg, Univer s (NAMENDA) 01-04 Oral, BID, ity of tablet 10 01:00: First dose [place] mg 00 on [facility] 01/03/22 at Branch 2000, Until Discontinu ed, Routine
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
Indicatio ns: Non-Valvul ar Atrial Fibrillati on KCL 2021-0 2021- No 40meq 40 mEq, Univers (KLOR-CON 01-04 Oral, ity of M20) tablet 00:45: 02:36 ONCE, 1 [place] 40 mEq 00 :00 dose, On Medical [facility] 01/03/22 at 1945, Routine ondansetron 0 Yes 4mg 4 mg, Slow Univers (ZOFRAN 01-03 IV Push, ity of (PF)) 23:41: Q6HPRN, [place] injection 4 48 Starting Medi ayan mg on [facility] 01/03/22 at 1841, Until Discontinu ed, Routine, Nausea and Vomiting (N/V) acetaminoph Yes 650mg 650 mg, Un ailyn en 01-03 Oral, ity of (TYLENOL) 23:39: Q6HPRN, [place] tablet 650 40 Starting Medic al mg on [facility] Branch 01/03/22 at 1839, Until Discontinu ed, Routine, Pain (scale 1-3) furosemide 2021- No 80mg 80 mg, IV U nivers (LASIX) 01-03 Push, ity of injection 23:30: 22:36 ONCE, 1 [place] 80 mg 00 :00 dose, On Medical [facility] Branch 01/03/22 at 1830, BERNY KCL 20 mEq Yes [id number] 20meq Take 1 Univers tablet 6-13 tablet by ity of 00:00: mouth [place] 00 daily. Medical Branch KCL 20 mEq 0 Yes [id number] 20meq Take 1 Univers tablet 6-13 tablet by ity of 00:00: mouth [place] 00 daily. Medical Branch KCL 20 mEq 0 Yes [id number] 20meq Take 1 Univers tablet 6-13 tablet by ity of 00:00: mouth [place] 00 daily. Medical Branch aspirin 81 Yes 81mg Take 81 mg U nivers mg chewable 12-22 by mouth ity of tablet 13:57: daily. Medical Branch CHOLECALCIF Yes 1999[iU Take 2,000 Univers BRYAN, 12-22 ] Int'l ity of VITAMIN D3, 13:57: Units by Gigi duncan (D3-1999 24 mouth Medical ORAL) daily. Branch OXcarbazepi Yes 300mg Take 300 U nivers ne - mg by ity of (TRILEPTAL) 13:57: mouth 2 [place] 300 mg 24 (two) Medical tablet times Branch daily. KCL 20 mEq 0 2021- No [id number] 20meq Take 1 Univers tablet 12-22- tablet by ity of 00:00: 00:00 mouth [place] 00 :00 daily. Medical Branch FUROSEMIDE 0 Yes [id number] TAKE 2 U nivers 40 mg 6-01 TABLETS BY ity of tablet 00:00: MOUTH [place] 00 EVERY Medical MORNING Branch AND EVERY EVENING FUROSEMIDE 0 Yes [id number] TAKE 2 U nivers 40 mg 6-01 TABLETS BY ity of tablet 00:00: MOUTH [place] 00 EVERY Medical MORNING Branch AND EVERY EVENING FUROSEMIDE Yes [id number] TAKE 2 U nivers 40 mg 6-01 TABLETS BY ity of tablet 00:00: MOUTH [place] 00 EVERY Medical MORNING Branch AND EVERY EVENING FUROSEMIDE Yes [id number] TAKE 2 U nivers 40 mg 6-01 TABLETS BY ity of tablet 00:00: MOUTH [place] 00 EVERY Medical MORNING Branch AND EVERY EVENING MORPHINE Yes Indication Uni vers SULFATE 5-31 s: ity of (MORPHINE, 17:34: morphine [place] as BULK, MISC) 13 pump, Medical unknown Branch rate ELIQUIS 5 Yes TAKE 1 Univer s mg tablet 3-02 TABLET BY ity o f 00:00: MOUTH [place] 00 TWICE A Medical DAY Branch ELIQUIS 5 Yes TAKE 1 Univer s mg tablet 3-02 TABLET BY ity o f 00:00: MOUTH [place] 00 TWICE A Medical DAY Branch ELIQUIS 5 Yes TAKE 1 Univer s mg tablet 3-02 TABLET BY ity o f 00:00: MOUTH [place] 00 TWICE A Medical DAY Branch ELIQUIS 5 Yes TAKE 1 Univer s mg tablet 3-02 TABLET BY ity o f 00:00: MOUTH [place] 00 TWICE A Medical DAY Branch POLYETHYLEN Yes [id number] MIX 17 Univers E GLYCOL 3-01 GRAMS IN 4 ity o f 3350 17 00:00: [employer] [place] gram/dose 00 WATER AND Medic al powder TAKE BY Branch MOUTH DAILY POLYETHYLEN 0 Yes [id number] MIX 17 Univers E GLYCOL 3-01 GRAMS IN 4 ity o f 3350 17 00:00: [employer] [place] gram/dose 00 WATER AND Medic al powder TAKE BY Branch MOUTH DAILY POLYETHYLEN Yes [id number] MIX 17 Univers E GLYCOL 3-01 GRAMS IN 4 ity o f 3350 17 00:00: [employer] [place] gram/dose 00 WATER AND Medic al powder TAKE BY Branch MOUTH DAILY POLYETHYLEN 0 Yes [id number] MIX 17 Univers E GLYCOL 3-01 GRAMS IN 4 ity o f 3350 17 00:00: [employer] [place] gram/dose 00 WATER AND Medic al powder TAKE BY Branch MOUTH DAILY atorvastati 2020-07 Yes [id number] 20mg Take 1 Univers n 20 mg 2-31 tablet by ity of tablet 00:00: mouth at [place] 00 bedtime. Medical Branch atorvastati 2020-07 Yes [id number] 20mg Take 1 Univers n 20 mg 2-31 tablet by ity of tablet 00:00: mouth at [place] 00 bedtime. Medical Branch atorvastati 2020-07 Yes [id number] 20mg Take 1 Univers n 20 mg 2-31 tablet by ity of tablet 00:00: mouth at [place] 00 bedtime. Medical Branch atorvastati 2020-07 2022- No [id number] 20mg Take 1 Univers n 20 mg 2-31 07-18 tablet by ity of tablet 00:00: 00:00 mouth at [place] 00 :00 bedtime. Medical Branch metformin 2020-07 Yes [id number] 1000mg Take 2 Univers ER 500 mg 1-15 tablets by ity of 24 hr 00:00: mouth 2 [place] tablet 00 (two) Medical times Branch daily with meals. metformin 2020-07 Yes [id number] 1000mg Take 2 Univers ER 500 mg 1-15 tablets by ity of 24 hr 00:00: mouth 2 [place] tablet 00 (two) Medical times Branch daily with meals. metformin 2020-07 Yes [id number] 1000mg Take 2 Univers ER 500 mg 1-15 tablets by ity of 24 hr 00:00: mouth 2 [place] tablet 00 (two) Medical times Branch daily with meals. metformin 2020-07 Yes [id number] 1000mg Take 2 Univers ER 500 mg 1-15 tablets by ity of 24 hr 00:00: mouth 2 [place] tablet 00 (two) Medical times Branch daily with meals. ALBUTEROL Yes [id number] INHALE 2 Univers 90 7-30 PUFFS ity of mcg/actuati 00:00: EVERY 4 [place] as on inhaler 00 (FOUR) Medical HOURS Branch NEEDED FOR WHEEZING OR SHORTNESS OF BREATH. ALBUTEROL Yes [id number] INHALE 2 Univers 90 7-30 PUFFS ity of mcg/actuati 00:00: EVERY 4 [place] as on inhaler 00 (FOUR) Medical HOURS Branch NEEDED FOR WHEEZING OR SHORTNESS OF BREATH. ALBUTEROL Yes [id number] INHALE 2 Univers 90 7-30 PUFFS ity of mcg/actuati 00:00: EVERY 4 [place] as on inhaler 00 (FOUR) Medical HOURS Branch NEEDED FOR WHEEZING OR SHORTNESS OF BREATH. ALBUTEROL Yes [id number] INHALE 2 Univers 90 7-30 PUFFS ity of mcg/actuati 00:00: EVERY 4 [place] as on inhaler 00 (FOUR) Medical HOURS Branch NEEDED FOR WHEEZING OR SHORTNESS OF BREATH. lactulose Yes [id number] TAKE 30 Univers 10 gram/15 3-07 MILLILITER ity of mL solution 00:00: S BY MOUTH [place] 00 EVERY DAY Medical NEEDED Branch FOR CONSTIPATI ON lactulose Yes [id number] TAKE 30 Univers 10 gram/15 3-07 M[place]ILITER ity of mL solution 00:00: S BY MOUTH [place] 00 EVERY DAY Medical NEEDED Branch FOR CONSTIPATI ON lactulose Yes [id number] TAKE 30 Univers 10 gram/15 3-07 MILLILITER ity of mL solution 00:00: S BY MOUTH [place] 00 EVERY DAY Medical NEEDED Branch FOR CONSTIPATI ON lactulose Yes [id number] TAKE 30 Univers 10 gram/15 3-07 MILLILITER ity of mL solution 00:00: S BY MOUTH [place] 00 EVERY DAY Medical NEEDED Branch FOR CONSTIPATI ON FLUoxetine Yes [id number] 40mg Take 1 Univers 40 mg 2-18 capsule by ity of capsule 00:00: mouth [place] 00 daily. Medical Branch FLUoxetine Yes [id number] 40mg Take 1 Univers 40 mg 2-18 capsule by ity of capsule 00:00: mouth [place] 00 daily. Medical Branch FLUoxetine Yes [id number] 40mg Take 1 Univers 40 mg 2-18 capsule by ity of capsule 00:00: mouth [place] 00 daily. Medical Branch FLUoxetine Yes [id number] 40mg Take 1 Univers 40 mg 2-18 capsule by ity of capsule 00:00: mouth [place] 00 daily. Medical Branch memantine Yes 1{tbl} Take 1 Univ ers 10 mg 4-25 tablet by ity of tablet 00:00: mouth 2 00 (two) Medical times Branch daily. memantine Yes 1{tbl} Take 1 Univ ers 10 mg 4-25 tablet by ity of tablet 00:00: mouth 2 (two) Medical times Branch daily. memantine 2018-0 Yes 1{tbl} Take 1 Univ ers 10 mg 4-25 tablet by ity of tablet 00:00: mouth 2 (two) Medical times [place] daily. memantine 2018-0 Yes 1{tbl} Take 1 Univ ers 10 mg 4-25 tablet by ity of tablet 00:00: mouth 2 (two) Medical times [place] daily. Immunizations Ordered Filled Immunization Date Status Comments [facility] Immunization Name Name SARS-COV-2 COVID-19 2020-12-22 Completed Unive rsity of PFIZER VACCINE 00:00:00 [facility] SARS-COV-2 COVID-19 2020-12-22 Completed Unive rsity of PFIZER VACCINE 00:00:00 [facility] SARS-COV-2 COVID-19 2020-12-22 Completed Unive rsity of PFIZER VACCINE 00:00:00 [facility] SARS-COV-2 COVID-19 2020-12-22 Completed Unive rsity of PFIZER VACCINE 00:00:00 [facility] SARS-COV-2 COVID-19 2020-12-02 Completed Unive rsity of PFIZER VACCINE 00:00:00 [facility] SARS-COV-2 COVID-19 2020-12-02 Completed Unive rsity of PFIZER VACCINE 00:00:00 [facility] SARS-COV-2 COVID-19 2020-12-02 Completed Unive rsity of PFIZER VACCINE 00:00:00 [facility] SARS-COV-2 COVID-19 2020-12-02 Completed Unive rsity of PFIZER VACCINE 00:00:00 [facility] Td 2016-04-26 Completed University of 00:00:00 [facility] [place] [facility] Td 2016-04-26 Completed University of 00:00:00 [facility] [place] [facility] Td 2016-04-26 Completed University of 00:00:00 [facility] [place] [facility] Td 2016-04-26 Completed University of 00:00:00 [facility] [place] [facility] Vital Signs Vital Name Observation Time Observation Value Comments Source Systolic blood 2022-01-09 20:32:00 101 mm[Hg] Univer sity of pressure [facility] [place] [facility] Diastolic blood 2022-01-09 20:32:00 68 mm[Hg] Unive rsity of pressure [facility] [place] [facility] Heart rate 2022-01-09 20:32:00 59 /min [facility] [place] Body temperature 2022-01-09 20:32:00 36.22 Cindy [facility] [place] [facility] Respiratory rate 2022-01-09 20:32:00 18 /min [facility] ersity of [facility] [place] [facility] Oxygen saturation in 2022-01-09 20:32:00 98 /min University of Arterial blood by [facility] [place] Pulse oximetry Branch Body weight 2022-01-09 09:04:00 72.621 kg [facility] BMI 2022-01-09 09:04:00 22.33 kg/m2 Universi ty of [facility] [place] [facility] Body height 2022-01-03 23:30:00 180.3 cm Universi ty of [facility] [place] [facility] Systolic blood 2021-12-23 16:34:00 100 mm[Hg] Univer sity of [facility] Diastolic blood 2021-12-23 16:34:00 62 mm[Hg] [facility] Heart rate 2021-12-23 16:01:00 62 /min [facility] [place] Body temperature 2021-12-23 16:01:00 36.61 Cindy Univ [facility] [place] Body height 2021-12-23 16:01:00 180.3 cm [facility] [place] Body weight 2021-12-23 16:01:00 83.825 kg Universi ty of [facility] [place] [facility] BMI 2021-12-23 16:01:00 25.77 kg/m2 Universi ty of [facility] [place] [facility] Oxygen saturation in 2021-12-23 16:01:00 99 /min University of Arterial blood by [facility] [place] Pulse oximetry Branch Procedures Procedure Date / Time Performing Clinician Source Performed COVID-19 (ID NOW RAPID 2022-01-09 17:20:00 Charissa Pate [facility] TESTING) Medical Branch MAGNESIUM 2022-01-08 09:05:00 Kylah [facility] TROPONIN I 2022-01-08 09:05:00 Kylah Houser [facility] BASIC METABOLIC PANEL 2022-01-08 09:05:00 Kylah Houser [facility] (NA, K, CL, CO2, Medical Branch GLUCOSE, BUN, CREATININE, CA) N-TERMINAL PRO-BNP 2022-01-08 09:05:00 Corrina [facility] HB ECG ROUTINE & RHYTHM 2022-01-07 11:19:04 Corrina [facility] MAGNESIUM 2022-01-07 09:30:00 Corrina [facility] BASIC METABOLIC PANEL 2022-01-07 09:30:00 Corrina [facility] (NA, K, CL, CO2, [facility] Branch GLUCOSE, BUN, CREATININE, CA) N-TERMINAL PRO-BNP 2022-01-07 09:30:00 Corrina [facility] MAGNESIUM 2022-01-06 08:28:00 Corrina [facility] BASIC METABOLIC PANEL 2022-01-06 08:28:00 Corrina [facility] (NA, K, CL, CO2, [facility] Branch GLUCOSE, BUN, CREATININE, CA) N-TERMINAL PRO-BNP 2022-01-06 08:28:00 Corrina [facility] URINALYSIS 2022-01-05 16:41:00 Artis Norris [facility] CT HEAD WO CONTRAST 2022-01-05 13:33:47 Corrina [facility] [place] [facility] MAGNESIUM 2022-01-05 09:34:00 Corrina [facility] TROPONIN I 2022-01-05 09:34:00 Corrina [facility] BASIC METABOLIC PANEL 2022-01-05 09:34:00 Corrina [facility] (NA, K, CL, CO2, [facility] Branch GLUCOSE, BUN, CREATININE, CA) CBC WITHOUT DIFF 2022-01-05 09:34:00 Corrina [facility] N-TERMINAL PRO-BNP 2022-01-05 09:34:00 Corrina [facility] POCT GLUCOSE (AUTOMATED) 2022-01-05 02:22:00 Corrina [facility] XR KUB 2022-01-05 00:56:00 Ricardo Srivast[facility] BASIC METABOLIC PANEL 2022-01-04 21:57:00 Corrina [facility] (NA, K, CL, CO2, Medical Branch GLUCOSE, BUN, CREATININE, CA) POCT GLUCOSE (AUTOMATED) 2022-01-04 21:57:00 Kylah Houser [facility] MRSA / MSSA SCREEN BY 2022-01-04 21:57:00 [facility] POCT GLUCOSE (AUTOMATED) 2022-01-04 16:36:00 Kylah Houser [facility] POCT GLUCOSE (AUTOMATED) 2022-01-04 13:04:00 Kylah Houser [facility] CREATINE KINASE 2022-01-04 11:09:00 Svetlana [facility] URIC ACID 2022-01-04 11:09:00 Svetlana deisy [facility] MAGNESIUM 2022-01-04 11:09:00 [facility] 2022-01-04 11:09:00 Svetlana [facility] BASIC METABOLIC PANEL 2022-01-04 11:09:00 [facility] (NA, K, CL, CO2, Medical Branch GLUCOSE, BUN, CREATININE, CA) CBC WITH DIFF 2022-01-04 11:09:00 Svetlana deisy [facility] N-TERMINAL PRO-BNP 2022-01-04 11:09:00 Kylah Houser [facility] ACUTE CARE VENOUS BLOOD 2022-01-04 09:50:00 Svetlana deisy [facility] GAS [facility] VITAMIN B12, LEVEL 2022-01-04 04:54:00 Svetlana [facility] TROPONIN I 2022-01-04 04:54:00 Svetlana deisy [facility] SEDIMENTATION RATE 2022-01-04 04:54:00 Svetlana deisy [facility] PROTHROMBIN TIME / INR 2022-01-04 04:54:00 [facility] VITAM[facility] D, 25-OH 2022-01-04 04:54:00 Svetlana [facility] XR HAND 3+ VW LEFT 2022-01-03 22:41:00 Rosalie Dennis [facility] URINALYSIS 2022-01-03 22:03:00 Rosalie Dennis [facility] CT CERVICAL SPINE WO 2022-01-03 21:29:19 Rosalie Dennis [facility] CONTRAST [facility] Branch CT 2022-01-03 21:29:19 Rosalie Dennis [facility] MAXILLOFACIAL/MANDIBLE Medical B ranch WO CONTRAST CT HEAD WO CONTRAST 2022-01-03 21:29:19 Rosalie Dennis [facility] XR CHEST 1 VW 2022-01-03 21:17:13 Rosalie Dennis [facility] XR HUMERUS 2 VW LEFT 2022-01-03 21:17:13 Rosalie Dennis [facility] XR SHOULDER 2+ VW LEFT 2022-01-03 21:17:13 Rosalie Dennis [facility] PHOSPHORUS 2022-01-03 20:59:00 Kelly Mota [facility] URIC ACID 2022-01-03 20:59:00 Kelly Mota [facility] MAGNESIUM 2022-01-03 20:59:00 Rosalie Dennis [facility] FERRITIN SERUM 2022-01-03 20:59:00 Kelly Mota [facility] TROPONIN I 2022-01-03 20:59:00 Rosalie Dennis [facility] COMP. METABOLIC PANEL 2022-01-03 20:59:00 Rosalie Dennis [facility] ([id number]) [facility] IRON PANEL 2022-01-03 20:59:00 Kelly Mota [facility] CBC WITH DIFF 2022-01-03 20:59:00 Rosalie [facility] [place] [facility] [place] [facility] N-TERMINAL PRO-BNP 2022-01-03 20:59:00 Rosalie Dennis [facility] HB ECG ROUTINE & RHYTHM 2022-01-03 20:48:26 Rosalie Dennis [facility] CONSENT/REFUSAL FOR 2022-01-03 20:47:25 Doctor Unassigned, No Un [facility] DIAGNOSIS AND TREATMENT Name Medical Branch Encounters Start End Encounter Admission Attending Care Care Encounter Source Date/Time Date/Time Type Type Clinicians Facility Department ID 2022-02-28 2022-02-28 [id number] [facility] 16:00:00 16:00:[address] [facility] 2022-02-02 2022-02-02 [facility] [id number] Univers 15:00:00 15:00:[id number] [facility] 2022-01-30 2022-01-30 [facility] [id number] Univers 00:00:00 00:00:00 Isaias DRAPER [id number] it[place] [phone] [facility] 059 [facility] 2022-01-10 2022-01-10 Transition JOAN ChristiansenLisa [id number] Univers 00:00:00 00:00:00 of Care Renetta PRESLEY [id number] it y of [place] [id number] [facility] 403 Branch 2022-01-03 2022-01-09 Inpatient X CORRINA [facility] [id number] Univers 15:43:00 17:08:00 KYLAH porras [facility] 2022-01-03 2022-01-09 [facility] Rosalie Dennis [facility] 1.2.840.1 [id number] Univers 15:43:00 17:08:00 Encounter Kylah Houser 350.1.13.10 [place] [id number] [address] 2021-12-23 2021-12-23 Office [facility] 1.2.840.114 [id number] Univers 11:00:00 11:26:27 Visit Ynes A HEALTH 350.1.13.10 i ty of [place] 4.2.7.2.686 [place] as LUDWIN?BLEA [id number] Ga dical SON[address] MEDICAL OFFICE BUILDING 2020-07-12 2020-07-12 Refill [facility] 1.2.840.114 [id number] 00:00:00 00:00:00 Wondiful A [facility] [id number] [place] 4.2.7.2.686 Professio [phone] [place] [address] Office Building [facility] 2020-07-12 2020-07-12 Refmaria a [facility] 1.2.840.114 [id number] 00:00:00 00:00:00 Isaias [place] 350.1.13.10 [place] 4.2.7.2.686 Professio [phone] [address] 2020-06-16 2020-06-16 Refill JarredAC[facility] 1.2.840.114 [id number] 00:00:00 00:00:00 Chris [place] 350.1.13.10 [place] 4.2.7.2.686 Professio [id number] [address] 2020-06-14 2020-06-14 Case [facility] 1.2.840.114 [id number] 00:00:00 00:00:00 Management Wondiful [facility] [id number] [place] [id number] Professio [phone] [place] [address] Office [address] One 2020-06-14 2020-06-14 Alok MalagonAC[facility] 1.2.840.114 [id number] 00:00:00 00:00:00 Wondiful [facility] [id number] [place] 4.2.7.2.686 Professio [phone] [place] [address] [address] 2020-06-04 2020-06-04 Office BARRETT Malagon 1.2.840.114 [id number] 08:21:06 09:40:59 Visit Snehta 350.1.13.10 [place] 4.2.7.2.686 [place] [phone] [place] 044 Office Building One 2019-05-02 2019-05-13 Inpatient 3 ROBERT Patton KAYCEE [id number] ENCPL 19:53:00 11:14:00 Deepthi 1018 Results Test Description Test Time Test Comments Results Result Comments Source TROPONIN I 2022-01-08 10:50:00 Test Item Value Reference Range Interpretation Comme nts TROPONIN I (test code = 0.073 ng/mL See_Comment H [Au tomated message] The [id number]) system which ge nerated this result tra nsmitted reference range : <=0.034. The reference r brooke was not used to int erpret this result as normal/abnormal . JANNA (test code = JANNA) Reference (Normal) Range (defined by the 99th percentile reference limit): <= 0.034 ng/mL Note: Cardiac troponin begins to rise 3-4 hours after the onset of ischemia. Repeat in 4-6 hours if the sample was drawn within 3-4 hours of the onset of the symptom and found normal. Diagnosis of myocardial injury is made with acute changes in cTn concentrations with at least one serial sample above the 99th percentile upper reference limit (URL), taken together with the patient's clinical presentation. Biotin has been reported to cause a negative bias, interpret results relative to patient's use of biotin. Lab Interpretation Abnormal (test code = 23929-8) [place] [facility] [id number] 10:46:38 Test Item Value Reference Range Interpretation Comments NT-proBNP (test code 5200 pg/mL See_Comment H [Autom ated = [id number]) message] The system which generated this result transmitted reference range : <=125. The reference range was not used to interpret this result as normal/abnormal . JANNA (test code = JANNA) Biotin has been reported to cause a negative bias, interpret results relative to patient's use of biotin. Lab Interpretation Abnormal (test code = 20888-7) [place] [facility]2022-06-26 10:40:34 Test Item Value Reference Range Interpretation Comments MAGNESIUM (test code = 7973913962) 2.3 mg/dL 1.7-2.4 Lab Interpretation (test code = Normal 62149-6) [facility] METABOLIC PANEL (NA, K, CL, CO2, GLUCOSE, BUN, CREATININE, CA)2022-01-08 10:40:14 Test Item Value Reference Range Interpretation Comments NA (test code = 135 mmol/L 135-145 0236587547) K (test code = 4.2 mmol/L 3.5-5.0 2696811546) CL (test code = 89 mmol/L 98-108 L 1748396895) CO2 TOTAL (test code = 39 mmol/L 23-31 H 3665174123) AGAP (test code = 2-16 5002247117) BUN (test code = 40 mg/dL 7-23 H 0608878813) GLUCOSE (test code = 128 mg/dL 70-110 H 1445110564) CREATININE (test code = 1.18 mg/dL 0.60-1.25 0055224040) CALCIUM (test code = 9.5 mg/dL 8.6-10.6 1771482168) eGFR (test code = mL/min/1.73m2 8154588723) JANNA (test code = JANNA) Association of Glomerular Filtration Rate (GFR) and Staging of Kidney Disease* + --+ --+ ------+| GFR (mL/min/1.73 m2) ?| With Kidney Damage ?| ?Without Kidney Damage+ --------+ --------+ +| ?>90 ?| ?Stage one ?| ? Normal ?+ ---+ ---+ -------+| ?60-89 ?| ?Stage two ?| ? Decreased GFR ? + --+ --+ ------+| ?30-59 ?| ?Stage three ?| ? Stage three ? + --+ --+ ------+| ?15-29 ?| ?Stage four ? | ? Stage four ?+ ---+ ---+ -------+| ?<15 (or dialysis) ? ?| ?Stage five ? | ? Stage five ?+ ---+ ---+ -------+ *Each stage assumes the associated GFR level has been in effect for at least three months. ?Stages 1 to 5, with or without kidney disease, indicate chronic kidney disease. Notes: Determination of stages one and two (with eGFR >59mL/min/1.73 m2) requires estimation of kidney damage for at least three months as defined by structural or functional abnormalities of the kidney, manifested by either:Pathological abnormalities or Markers of kidney damage (including abnormalities in the composition of the blood or urine or abnormalities in imaging tests). Lab Interpretation Abnormal (test code = 44738-7) [facility] METABOLIC PANEL (NA, K, CL, CO2, GLUCOSE, BUN, CREATININE, CA)2022-01-07 11:06:57 Test Item Value Reference Range Interpretation Comments NA (test code = 135 mmol/L 135-145 1249297281) K (test code = 4.5 mmol/L 3.5-5.0 2230078000) CL (test code = 87 mmol/L 98-108 L 7134596615) CO2 TOTAL (test code = 40 mmol/L 23-31 H 0945114199) AGAP (test code = 2-16 3865120161) BUN (test code = 37 mg/dL 7-23 H 8856683630) GLUCOSE (test code = 137 mg/dL 70-110 H 4483081052) CREATININE (test code = 1.11 mg/dL 0.60-1.25 8511484698) CALCIUM (test code = 9.4 mg/dL 8.6-10.6 9947548949) eGFR (test code = mL/min/1.73m2 3361447384) JANNA (test code = JANNA) Association of Glomerular Filtration Rate (GFR) and Staging of Kidney Disease* + --+ --+ ------+| GFR (mL/min/1.73 m2) ?| With Kidney Damage ?| ?Without Kidney Damage+ --------+ --------+ +| ?>90 ?| ?Stage one ?| ? Normal ?+ ---+ ---+ -------+| ?60-89 ?| ?Stage two ?| ? Decreased GFR ? + --+ --+ ------+| ?30-59 ?| ?Stage three ?| ? Stage three ? + --+ --+ ------+| ?15-29 ?| ?Stage four ? | ? Stage four ?+ ---+ ---+ -------+| ?<15 (or dialysis) ? ?| ?Stage five ? | ? Stage five ?+ ---+ ---+ -------+ *Each stage assumes the associated GFR level has been in effect for at least three months. ?Stages 1 to 5, with or without kidney disease, indicate chronic kidney disease. Notes: Determination of stages one and two (with eGFR >59mL/min/1.73 m2) requires estimation of kidney damage for at least three months as defined by structural or functional abnormalities of the kidney, manifested by either:Pathological abnormalities or Markers of kidney damage (including abnormalities in the composition of the blood or urine or abnormalities in imaging tests). Lab Interpretation Abnormal (test code = 11418-4) [place] [facility] [id number] 10:45:58 Test Item Value Reference Range Interpretation Comments NT-proBNP (test code 4800 pg/mL See_Comment H [Autom ated = 5006156656) message] The system which generated this result transmitted reference range : <=125. The reference range was not used to interpret this result as normal/abnormal . JANNA (test code = JANNA) Biotin has been reported to cause a negative bias, interpret results relative to patient's use of biotin. Lab Interpretation Abnormal (test code = 44029-5) [facility]2022-06-25 10:44:18 Test Item Value Reference Range Interpretation Comments MAGNESIUM (test code = 3436630538) 2.2 mg/dL 1.7-2.4 Lab Interpretation (test code = Normal 08452-7) [facility] (NA, K, CL, CO2, GLUCOSE, BUN, CREATININE, CA)2022-01-06 12:11:33 Test Item Value Reference Range Interpretation Comments NA (test code = 138 mmol/L 135-145 1944384741) K (test code = 3.4 mmol/L 3.5-5.0 L 2887057522) CL (test code = 88 mmol/L 98-108 L 7246421402) CO2 TOTAL (test code = 40 mmol/L 23-31 H 2055295281) AGAP (test code = 2-16 7803029915) BUN (test code = 31 mg/dL 7-23 H 7540360167) GLUCOSE (test code = 107 mg/dL 70-110 9843808378) CREATININE (test code = 1.02 mg/dL 0.60-1.25 6779722416) CALCIUM (test code = 8.4 mg/dL 8.6-10.6 L 1742522033) eGFR (test code = mL/min/1.73m2 6815517853) JANNA (test code = JANNA) Association of Glomerular Filtration Rate (GFR) and Staging of Kidney Disease* + --+ --+ ------+| GFR (mL/min/1.73 m2) ?| With Kidney Damage ?| ?Without Kidney Damage+ --------+ --------+ +| ?>90 ?| ?Stage one ?| ? Normal ?+ ---+ ---+ -------+| ?60-89 ?| ?Stage two ?| ? Decreased GFR ? + --+ --+ ------+| ?30-59 ?| ?Stage three ?| ? Stage three ? + --+ --+ ------+| ?15-29 ?| ?Stage four ? | ? Stage four ?+ ---+ ---+ -------+| ?<15 (or dialysis) ? ?| ?Stage five ? | ? Stage five ?+ ---+ ---+ -------+ *Each stage assumes the associated GFR level has been in effect for at least three months. ?Stages 1 to 5, with or without kidney disease, indicate chronic kidney disease. Notes: Determination of stages one and two (with eGFR >59mL/min/1.73 m2) requires estimation of kidney damage for at least three months as defined by structural or functional abnormalities of the kidney, manifested by either:Pathological abnormalities or Markers of kidney damage (including abnormalities in the composition of the blood or urine or abnormalities in imaging tests). Lab Interpretation Abnormal (test code = 85083-6) [facility] 12:11:33 Test Item Value Reference Range Interpretation Comments MAGNESIUM (test code = 6950526518) 1.8 mg/dL 1.7-2.4 Lab Interpretation (test code = Normal 72001-4) [facility] [id number] 12:10:32 Test Item Value Reference Range Interpretation Comments NT-proBNP (test code 5050 pg/mL See_Comment H [Autom ated = 7177083793) message] The system which generated this result transmitted reference range : <=125. The reference range was not used to interpret this result as normal/abnormal . JANNA (test code = JANNA) Biotin has been reported to cause a negative bias, interpret results relative to patient's use of biotin. Lab Interpretation Abnormal (test code = 77420-7) [id number]39:21 Test Item Value Reference Interpretation Comments Range TROPONIN I (test 0.097 ng/mL See_Comment H [Automated code = 1810731040) message] The system which generated this result transmitted reference range : <=0.034. The reference range was not used to interpret this result as normal/abnormal . JANNA (test code = Reference (Normal) JANNA) Range (defined by the 99th percentile reference limit): <= 0.034 ng/mL Note: Cardiac troponin begins to rise 3-4 hours after the onset of ischemia. Repeat in 4-6 hours if the sample was drawn within 3-4 hours of the onset of the symptom and found normal. Diagnosis of myocardial injury is made with acute changes in cTn concentrations with at least one serial sample above the 99th percentile upper reference limit (URL), taken together with the patient's clinical presentation. Biotin has been reported to cause a negative bias, interpret results relative to patient's use of biotin. Lab Interpretation Abnormal (test code = 90239-1) [facility] METABOLIC PANEL (NA, K, CL, CO2, GLUCOSE, BUN, CREATININE, CA)2022-01-05 11:33:35 Test Item Value Reference Range Interpretation Comments NA (test code = 137 mmol/L 135-145 4785985097) K (test code = 3.2 mmol/L 3.5-5.0 L 2180573604) CL (test code = 88 mmol/L 98-108 L 8389012621) CO2 TOTAL (test code = 40 mmol/L 23-31 H 0165034803) AGAP (test code = 2-16 8536418351) BUN (test code = 32 mg/dL 7-23 H 1825241816) GLUCOSE (test code = 152 mg/dL 70-110 H 0732039675) CREATININE (test code = 0.99 mg/dL 0.60-1.25 5828504787) CALCIUM (test code = 8.7 mg/dL 8.6-10.6 8158286062) eGFR (test code = mL/min/1.73m2 9139678007) JANNA (test code = JANNA) Association of Glomerular Filtration Rate (GFR) and Staging of Kidney Disease* + --+ --+ ------+| GFR (mL/min/1.73 m2) ?| With Kidney Damage ?| ?Without Kidney Damage+ --------+ --------+ +| ?>90 ?| ?Stage one ?| ? Normal ?+ ---+ ---+ -------+| ?60-89 ?| ?Stage two ?| ? Decreased GFR ? + --+ --+ ------+| ?30-59 ?| ?Stage three ?| ? Stage three ? + --+ --+ ------+| ?15-29 ?| ?Stage four ? | ? Stage four ?+ ---+ ---+ -------+| ?<15 (or dialysis) ? ?| ?Stage five ? | ? Stage five ?+ ---+ ---+ -------+ *Each stage assumes the associated GFR level has been in effect for at least three months. ?Stages 1 to 5, with or without kidney disease, indicate chronic kidney disease. Notes: Determination of stages one and two (with eGFR >59mL/min/1.73 m2) requires estimation of kidney damage for at least three months as defined by structural or functional abnormalities of the kidney, manifested by either:Pathological abnormalities or Markers of kidney damage (including abnormalities in the composition of the blood or urine or abnormalities in imaging tests). Lab Interpretation Abnormal (test code = 33952-1) [facility] [id number] 11:12:29 Test Item Value Reference Range Interpretation Comments NT-proBNP (test code 6130 pg/mL See_Comment H [Autom ated = 8107244343) message] The system which generated this result transmitted reference range : <=125. The reference range was not used to interpret this result as normal/abnormal . JANNA (test code = JANNA) Biotin has been reported to cause a negative bias, interpret results relative to patient's use of biotin. Lab Interpretation Abnormal (test code = 47116-6) [facility] 10:57:45 Test Item Value Reference Range Interpretation Comments MAGNESIUM (test code = 6432120969) 1.9 mg/dL 1.7-2.4 Lab Interpretation (test code = Normal 23817-7) [facility] WITHOUT [id number] 10:16:00 Test Item Value Reference Range Interpretation Comments WBC (test code = 6690-2) See_Comment [A utomated message] The system [employer] generated this result transmit gabriella reference range : 4.20 - 10.70 10*3/?L. The reference range was not used to interpret this result as normal/abnormal . RBC (test code = 789-8) See_Comment L [Au tomated message] The system [employer] generated this result transmit gabriella reference range : 4.26 - 5.52 10* 6/?L. The reference r brooke was not used to interpret this result as normal/abnormal . HGB (test code = 718-7) 10.3 g/dL 12.2-16.4 L HCT (test code = 4544-3) 32.3 % 38.4-49.3 L MCH (test code = 785-6) 28.5 pg 26.1-32.7 MCV (test code = 787-2) 89.2 fL 81.7-95.6 MCHC (test code = 786-4) 31.9 g/dL 31.2-35.0 PLT (test code = 777-3) See_Comment L [Au tomated message] The system [employer] generated this result transmit gabriella reference range : 150 - 328 10*3/?L. The reference range was not used to interpret this result as normal/abnormal . MPV (test code = 10.4 fL 9.8-13.0 62585-0) RDW-CV (test code = 14.0 % 12.1-15.4 788-0) RDW-SD (test code = 45.7 fL 38.5-51.6 40926-9) NRBC x10^3 (test code = <0.01 See_Comment [Au tomated message] 0093212944) The system [employer] generated this result transmit gabriella reference range : 10*3/?L. The reference range was not used to interpret this result as normal/abnormal . NRBC/100 WBC (test code See_Comment [Au tomated message] = 8266793820) The system [employer] generated this result transmit gabriella reference range : 0.0 - 10.0 /100 WBC s. The reference r brooke was not used to interpret this result as normal/abnormal . IPF % (test code = 9217923645) Lab Interpretation (test Abnormal code = 25963-5) [facility] 03:16:41 Test Item Value Reference Range Interpretation Comments POCT GLU (test code = 7329250838) 152 mg/dL 70-110 H Lab Interpretation (test code = Abnormal 31758-1) [facility] B12, [id number] 02:06:09 Test Item Value Reference Range Interpretation Comments VIT B12 (test code = 246 pg/mL 240-930 0834255191) JANNA (test code = JANNA) Biotin has been reported to cause a positive bias, interpret results relative to patient's use of biotin. Lab Interpretation (test Normal code = 89036-7) [facility] (NA, K, CL, CO2, GLUCOSE, BUN, CREATININE, CA)2022-01-04 22:46:11 Test Item Value Reference Range Interpretation Comments NA (test code = 137 mmol/L 135-145 1699283261) K (test code = 4.0 mmol/L 3.5-5.0 3250585880) CL (test code = 91 mmol/L 98-108 L 3498815945) CO2 TOTAL (test code = 40 mmol/L 23-31 H 3015030274) AGAP (test code = 2-16 6106463312) BUN (test code = 35 mg/dL 7-23 H 4165957637) GLUCOSE (test code = 147 mg/dL 70-110 H 2159928943) CREATININE (test code = 0.94 mg/dL 0.60-1.25 4112420325) CALCIUM (test code = 8.9 mg/dL 8.6-10.6 9919343768) eGFR (test code = mL/min/1.73m2 5773659709) JANNA (test code = JANNA) Association of Glomerular Filtration Rate (GFR) and Staging of Kidney Disease* + --+ --+ ------+| GFR (mL/min/1.73 m2) ?| With Kidney Damage ?| ?Without Kidney Damage+ --------+ --------+ +| ?>90 ?| ?Stage one ?| ? Normal ?+ ---+ ---+ -------+| ?60-89 ?| ?Stage two ?| ? Decreased GFR ? + --+ --+ ------+| ?30-59 ?| ?Stage three ?| ? Stage three ? + --+ --+ ------+| ?15-29 ?| ?Stage four ? | ? Stage four ?+ ---+ ---+ -------+| ?<15 (or dialysis) ? ?| ?Stage five ? | ? Stage five ?+ ---+ ---+ -------+ *Each stage assumes the associated GFR level has been in effect for at least three months. ?Stages 1 to 5, with or without kidney disease, indicate chronic kidney disease. Notes: Determination of stages one and two (with eGFR >59mL/min/1.73 m2) requires estimation of kidney damage for at least three months as defined by structural or functional abnormalities of the kidney, manifested by either:Pathological abnormalities or Markers of kidney damage (including abnormalities in the composition of the blood or urine or abnormalities in imaging tests). Lab Interpretation Abnormal (test code = 68471-5) [facility] GLUCOSE (AUTOMATED)2022-01-04 21:59:50 Test Item Value Reference Range Interpretation Comments POCT GLU (test code = 5707312393) 155 mg/dL 70-110 H Lab Interpretation (test code = Abnormal 35775-1) [facility] D, [id number] 17:51:37 Test Item Value Reference Range Interpretation Comments VIT D 25OH (test code = 39 ng/mL 25-80 36213-8) JANNA (test code = JANNA) Deficiency: <20 ng/mLInsufficiency : 20-24 ng/mLOptimal: 25-80 ng/mL Lab Interpretation (test Normal code = 22069-6) [facility] GLUCOSE (AUTOMATED)2022-01-04 16:39:25 Test Item Value Reference Range Interpretation Comments POCT GLU (test code = 1213463956) 163 mg/dL 70-110 H Lab Interpretation (test code = Abnormal 29897-9) [facility]2022-01-04 13:09:48 Test Item Value Reference Range Interpretation Comments POCT GLU (test code = 1268198159) 112 mg/dL 70-110 H Lab Interpretation (test code = Abnormal 79805-2) [facility]leTROPONIN [id number] 12:25:21 Test Item Value Reference Interpretation Comments Range TROPONIN I (test 0.146 ng/mL See_Comment H [Automated code = 2040145789) message] The system which generated this result transmitted reference range : <=0.034. The reference range was not used to interpret this result as normal/abnormal . JANNA (test code = Reference (Normal) JANNA) Range (defined by the 99th percentile reference limit): <= 0.034 ng/mL Note: Cardiac troponin begins to rise 3-4 hours after the onset of ischemia. Repeat in 4-6 hours if the sample was drawn within 3-4 hours of the onset of the symptom and found normal. Diagnosis of myocardial injury is made with acute changes in cTn concentrations with at least one serial sample above the 99th percentile upper reference limit (URL), taken together with the patient's clinical presentation. Biotin has been reported to cause a negative bias, interpret results relative to patient's use of biotin. Lab Interpretation Abnormal (test code = 24625-1) [facility] [id number] 12:22:00 Test Item Value Reference Range Interpretation Comments NT-proBNP (test code 8310 pg/mL See_Comment H [Autom ated = 2360789531) message] The system which generated this result transmitted reference range : <=125. The reference range was not used to interpret this result as normal/abnormal . JANNA (test code = JANNA) Biotin has been reported to cause a negative bias, interpret results relative to patient's use of biotin. Lab Interpretation Abnormal (test code = 09406-7) [facility]20[facility] 12:14:00 Test Item Value Reference Range Interpretation Comments MAGNESIUM (test code = 8158080520) 2.0 mg/dL 1.7-2.4 Lab Interpretation (test code = Normal 40620-6) [facility] METABOLIC PANEL (NA, K, CL, CO2, GLUCOSE, BUN, CREATININE, CA)2022-01-04 12:13:40 Test Item Value Reference Range Interpretation Comments NA (test code = 138 mmol/L 135-145 9040261935) K (test code = 3.2 mmol/L 3.5-5.0 L 9391790288) CL (test code = 92 mmol/L 98-108 L 0786683463) CO2 TOTAL (test code = 40 mmol/L 23-31 H 1791257152) AGAP (test code = 2-16 5319911184) BUN (test code = 35 mg/dL 7-23 H 4333584131) GLUCOSE (test code = 113 mg/dL 70-110 H 2105239255) CREATININE (test code = 1.00 mg/dL 0.60-1.25 9020481751) CALCIUM (test code = 8.6 mg/dL 8.6-10.6 8986290318) eGFR (test code = mL/min/1.73m2 0177183360) JANNA (test code = AJNNA) Association of Glomerular Filtration Rate (GFR) and Staging of Kidney Disease* + --+ --+ ------+| GFR (mL/min/1.73 m2) ?| With Kidney Damage ?| ?Without Kidney Damage+ --------+ --------+ +| ?>90 ?| ?Stage one ?| ? Normal ?+ ---+ ---+ -------+| ?60-89 ?| ?Stage two ?| ? Decreased GFR ? + --+ --+ ------+| ?30-59 ?| ?Stage three ?| ? Stage three ? + --+ --+ ------+| ?15-29 ?| ?Stage four ? | ? Stage four ?+ ---+ ---+ -------+| ?<15 (or dialysis) ? ?| ?Stage five ? | ? Stage five ?+ ---+ ---+ -------+ *Each stage assumes the associated GFR level has been in effect for at least three months. ?Stages 1 to 5, with or without kidney disease, indicate chronic kidney disease. Notes: Determination of stages one and two (with eGFR >59mL/min/1.73 m2) requires estimation of kidney damage for at least three months as defined by structural or functional abnormalities of the kidney, manifested by either:Pathological abnormalities or Markers of kidney damage (including abnormalities in the composition of the blood or urine or abnormalities in imaging tests). Lab Interpretation Abnormal (test code = 18492-1) [facility]le[facility] [id number] 12:13:19 Test Item Value Reference Range Interpretation Comments URIC ACID (test code = 9232634541) 9.2 mg/dL 3.6-8.0 H Lab Interpretation (test code = Abnormal 36114-3) [facility]leCREATINE [id number] 12:12:39 Test Item Value Reference Range Interpretation Comments CK (test code = 6652623749) 33 U/L 33-194 Lab Interpretation (test code = Normal 27451-5) [facility] WITH [id number] 12:10:38 Test Item Value Reference Range Interpretation Comments WBC (test code = See_Comment [Automated 6690-2) message] The sy stem which generated this result transmitted reference range : 4.20 - 10.70 10*3/?L. The reference range was not used to interpret this result as normal/abnormal . RBC (test code = See_Comment L [Automated 789-8) message] The sy stem which generated this result transmitted reference range : 4.26 - 5.52 10*6/?L. The reference range was not used to interpret this result as normal/abnormal . HGB (test code = 9.5 g/dL 12.2-16.4 L 718-7) HCT (test code = 30.5 % 38.4-49.3 L 4544-3) MCV (test code = 88.4 fL 81.7-95.6 787-2) MCH (test code = 27.5 pg 26.1-32.7 785-6) MCHC (test code = 31.1 g/dL 31.2-35.0 L 786-4) RDW-SD (test code = 44.9 fL 38.5-51.6 37171-0) RDW-CV (test code = 14.0 % 12.1-15.4 788-0) PLT (test code = See_Comment L [Automated 777-3) message] The sy stem which generated this result transmitted reference range : 150 - 328 10*3/ ?L. The reference r brooke was not used to interpret this result as normal/abnormal . MPV (test code = 10.9 fL 9.8-13.0 91843-8) NRBC/100 WBC (test See_Comment [Automat ed code = 4498983677) message] The system which generated this result transmitted reference range : 0.0 - 10.0 /100 WBCs. The refer ence range was not u sed to interpret th is result as normal/abnormal . NRBC x10^3 (test code <0.01 See_Comment [Auto mated = 0676579846) message] The s ystem which generated this result transmitted reference range : 10*3/?L. The reference range was not used to interpret this result as normal/abnormal . GRAN MAT (NEUT) % 71.1 % (test code = 770-8) IMM GRAN % (test code 0.20 % = 5089660221) LYMPH % (test code = 16.8 % 736-9) MONO % (test code = 9.2 % 5905-5) EOS % (test code = 2.0 % 713-8) BASO % (test code = 0.7 % 706-2) GRAN MAT x10^3(ANC) 3.26 10*3/uL 1.99-6.95 (test code = 7425052168) IMM GRAN x10^3 (test <0.03 0.00-0.06 code = 8867513865) LYMPH x10^3 (test code 0.77 10*3/uL 1.09-3.23 L = 731-0) MONO x10^3 (test code 0.42 10*3/uL 0.36-1.02 = 742-7) EOS x10^3 (test code = 0.09 10*3/uL 0.06-0.53 711-2) BASO x10^3 (test code 0.03 10*3/uL 0.01-0.09 = 704-7) Lab Interpretation Abnormal (test code = 88974-7) [facility] CARE VENOUS BLOOD [id number] 10:02:30 Test Item Value Reference Range Interpretation Comments PH (test code = 7.32-7.42 3345844691) PCO2 DEVI (test code = See_Comment H [Auto mated message] 2179578258) The system [employer] generated this result transmitted ref erence range: 41 - 51 mmHg. The reference r brooke was not used to interpret this result as normal/abnor mal. PO2 DEVI (test code = See_Comment [Autom ated message] 2724601280) The system [employer] generated this result transmitted ref erence range: 25 - 40 mmHg. The reference r brooke was not used to interpret this result as normal/abnor mal. HCO3 DEVI (test code = See_Comment H [Auto mated message] 9959988851) The system [employer] generated this result transmitted ref erence range: 24 - 28 mEq/L. The reference r brooke was not used to interpret this result as normal/abnor mal. AC VBE(BEAKER) (test mEq/L code = 8440458890) Lab Interpretation (test Abnormal code = 69909-4) [facility]leSEDIMENTATION [id number] 05:40:15 Test Item Value Reference Range Interpretation Comments ESR (test code = See_Comment H [Automated message] 3452901055) The system [employer] generated this result transmitted ref erence range: 0 - 10 m m/HR. The reference r brooke was not used to interpret this result as normal/abnor mal. Lab Interpretation (test Abnormal code = 06232-4) [facility]leTROPONIN [id number] 05:32:21 Test Item Value Reference Interpretation Comments Range TROPONIN I (test 0.127 ng/mL See_Comment H [Automated code = 7638364828) message] The system which generated this result transmitted reference range : <=0.034. The reference range was not used to interpret this result as normal/abnormal . JANNA (test code = Reference (Normal) JANNA) Range (defined by the 99th percentile reference limit): <= 0.034 ng/mL Note: Cardiac troponin begins to rise 3-4 hours after the onset of ischemia. Repeat in 4-6 hours if the sample was drawn within 3-4 hours of the onset of the symptom and found normal. Diagnosis of myocardial injury is made with acute changes in cTn concentrations with at least one serial sample above the 99th percentile upper reference limit (URL), taken together with the patient's clinical presentation. Biotin has been reported to cause a negative bias, interpret results relative to patient's use of biotin. Lab Interpretation Abnormal (test code = 18532-1) [facility]leProthrombin Time / [id number] 05:24:22 Test Item Value Reference Range Interpretation Comments PROTIME PATIENT (test See_Comment H [Auto mated message] code = 5964-2) The system [place] [place] generated this result transmitted ref erence range: 12.0 - 1 4.7 Seconds. The reference range was not used to int erpret this result as normal/abnormal . INR (test code = 6301-6) Nor mal INR <1.1; Warfarin Therap eutic range 2.0 to 3. 0 or 2.5 to 3.5, dep ending upon the indica tions. Lab Interpretation (test Abnormal code = 61908-5) [facility]leFERRITIN [id number] 05:10:35 Test Item Value Reference Range Interpretation Comments FERRITIN (test code = 240.0 ng/mL 18.0-464.0 4005509078) JANNA (test code = JANNA) Biotin has been reported to cause a negative bias, interpret results relative to patient's use of biotin. Lab Interpretation (test Normal code = 54687-7) [facility]leIRON [id number] 04:42:37 Test Item Value Reference Range Interpretation Comments IRON (test code = 4273758703) 42 ug/dL 50-160 L TIBC (test code = 6353220142) 258 ug/dL 250-410 % FE SAT (test code = 9515921369) 16 % 20-50 L Lab Interpretation (test code = Abnormal 30580-3) [facility] [id number] 04:33:56 Test Item Value Reference Range Interpretation Comments URIC ACID (test code = 8314575748) 9.4 mg/dL 3.6-8.0 H Lab Interpretation (test code = Abnormal 58398-7) [facility]lePHOSPHORUS2022-06-22 04:33:56 Test Item Value Reference Range Interpretation Comments PHOSPHORUS (test code = 7456748962) 3.7 mg/dL 2.5-5.0 Lab Interpretation (test code = Normal 19844-7) [facility]leTROPONIN [id number] 21:37:26 Test Item Value Reference Interpretation Comments Range TROPONIN I (test 0.135 ng/mL See_Comment H [Automated code = 6849724516) message] The system which generated this result transmitted reference range : <=0.034. The reference range was not used to interpret this result as normal/abnormal . JANNA (test code = Reference (Normal) JANNA) Range (defined by the 99th percentile reference limit): <= 0.034 ng/mL Note: Cardiac troponin begins to rise 3-4 hours after the onset of ischemia. Repeat in 4-6 hours if the sample was drawn within 3-4 hours of the onset of the symptom and found normal. Diagnosis of myocardial injury is made with acute changes in cTn concentrations with at least one serial sample above the 99th percentile upper reference limit (URL), taken together with the patient's clinical presentation. Biotin has been reported to cause a negative bias, interpret results relative to patient's use of biotin. Lab Interpretation Abnormal (test code = 72345-8) [facility]le[facility] [id number] 21:34:29 Test Item Value Reference Range Interpretation Comments NT-proBNP (test code 8770 pg/mL See_Comment H [Autom ated = 0323347823) message] The system which generated this result transmitted reference range : <=125. The reference range was not used to interpret this result as normal/abnormal . JANNA (test code = JANNA) Biotin has been reported to cause a negative bias, interpret results relative to patient's use of biotin. Lab Interpretation Abnormal (test code = 20309-3) [facility]leCOMP. METABOLIC PANEL (11384)2022-01-03 21:27:44 Test Item Value Reference Range Interpretation Comments NA (test code = 139 mmol/L 135-145 4028147544) K (test code = 3.3 mmol/L 3.5-5.0 L 2840008654) CL (test code = 91 mmol/L 98-108 L 8495110701) CO2 TOTAL (test code = 39 mmol/L 23-31 H 6277278857) AGAP (test code = 2-16 4781296727) BUN (test code = 39 mg/dL 7-23 H 1777730877) GLUCOSE (test code = 122 mg/dL 70-110 H 4449481049) CREATININE (test code = 1.16 mg/dL 0.60-1.25 5619651608) TOTAL BILI (test code = 0.7 mg/dL 0.1-1.7 2464620081) CALCIUM (test code = 9.3 mg/dL 8.6-10.6 4727368247) T PROTEIN (test code = 6.5 g/dL 6.3-8.2 4460202400) ALBUMIN (test code = 4.0 g/dL 3.5-5.0 2273073842) ALK PHOS (test code = 79 U/L 34-122 6391812574) ALTv (test code = 18 U/L 5-50 1742-6) AST(SGOT) (test code = 26 U/L 13-40 9910716760) eGFR (test code = mL/min/1.73m2 6884375553) JANNA (test code = JANNA) Association of Glomerular Filtration Rate (GFR) and Staging of Kidney Disease* + --+ --+ ------+| GFR (mL/min/1.73 m2) ?| With Kidney Damage ?| ?Without Kidney Damage+ --------+ --------+ +| ?>90 ?| ?Stage one ?| ? Normal ?+ ---+ ---+ -------+| ?60-89 ?| ?Stage two ?| ? Decreased GFR ? + --+ --+ ------+| ?30-59 ?| ?Stage three ?| ? Stage three ? + --+ --+ ------+| ?15-29 ?| ?Stage four ? | ? Stage four ?+ ---+ ---+ -------+| ?<15 (or dialysis) ? ?| ?Stage five ? | ? Stage five ?+ ---+ ---+ -------+ *Each stage assumes the associated GFR level has been in effect for at least three months. ?Stages 1 to 5, with or without kidney disease, indicate chronic kidney disease. Notes: Determination of stages one and two (with eGFR >59mL/min/1.73 m2) requires estimation of kidney damage for at least three months as defined by structural or functional abnormalities of the kidney, manifested by either:Pathological abnormalities or Markers of kidney damage (including abnormalities in the composition of the blood or urine or abnormalities in imaging tests). Lab Interpretation Abnormal (test code = 87091-2) [facility]MAG[facility]20[facility] 21:27:44 Test Item Value Reference Range Interpretation Comments MAGNESIUM (test code = 6360405586) 1.9 mg/dL 1.7-2.4 Lab Interpretation (test code = Normal 53965-1) [facility] WITH [id number] 21:16:25 Test Item Value Reference Range Interpretation Comments WBC (test code = See_Comment [Automated 6690-2) message] The sy stem which generated this result transmitted reference range : 4.20 - 10.70 10*3/?L. The reference range was not used to interpret this result as normal/abnormal . RBC (test code = See_Comment L [Automated 789-8) message] The sy stem which generated this result transmitted reference range : 4.26 - 5.52 10*6/?L. The reference range was not used to interpret this result as normal/abnormal . HGB (test code = 11.2 g/dL 12.2-16.4 L 718-7) HCT (test code = 35.5 % 38.4-49.3 L 4544-3) MCV (test code = 88.8 fL 81.7-95.6 787-2) MCH (test code = 28.0 pg 26.1-32.7 785-6) MCHC (test code = 31.5 g/dL 31.2-35.0 786-4) RDW-SD (test code = 45.6 fL 38.5-51.6 52742-2) RDW-CV (test code = 14.0 % 12.1-15.4 788-0) PLT (test code = See_Comment [Automated 777-3) message] The sy stem which generated this result transmitted reference range : 150 - 328 10*3/ ?L. The reference r brooke was not used to interpret this result as normal/abnormal . MPV (test code = 10.5 fL 9.8-13.0 92199-7) NRBC/100 WBC (test See_Comment [Automat ed code = 4123294348) message] The system which generated this result transmitted reference range : 0.0 - 10.0 /100 WBCs. The refer ence range was not u sed to interpret th is result as normal/abnormal . NRBC x10^3 (test code <0.01 See_Comment [Auto mated = 8438467508) message] The s ystem which generated this result transmitted reference range : 10*3/?L. The reference range was not used to interpret this result as normal/abnormal . GRAN MAT (NEUT) % 77.2 % (test code = 770-8) IMM GRAN % (test code 0.30 % = 6093277073) LYMPH % (test code = 12.3 % 736-9) MONO % (test code = 8.5 % 5905-5) EOS % (test code = 1.2 % 713-8) BASO % (test code = 0.5 % 706-2) GRAN MAT x10^3(ANC) 4.47 10*3/uL 1.99-6.95 (test code = 9690352968) IMM GRAN x10^3 (test <0.03 0.00-0.06 code = 7269252151) LYMPH x10^3 (test code 0.71 10*3/uL 1.09-3.23 L = 731-0) MONO x10^3 (test code 0.49 10*3/uL 0.36-1.02 = 742-7) EOS x10^3 (test code = 0.07 10*3/uL 0.06-0.53 711-2) BASO x10^3 (test code 0.03 10*3/uL 0.01-0.09 = 704-7) Lab Interpretation Abnormal (test code = 42904-3) [id number] Test Item Value Reference Range Interpretation Comments TROPONIN-I (test 0.063 NG/ML 0.000-0.045 HH Negative: < /= 0.045 code = TROPI) Positive: >/= 0.046 Correlation wit h serial results, other cardiac markers, and cl inical findings is nec essary to determine the c linical significance of this result. Quantit ative results using d ifferent methodologies s hould not be compared to one another as nume rical results may mell yby method."
[2022-02-04] MEDS ORDERED: FENTANYL CITR 100 MCG/2 ML ONE (04:11)
[2022-02-04] MEDS ORDERED: HYDROMORPHONE HCL 1 MG/ML INJ ONE (04:49)
[2022-02-04] MEDS ORDERED: ONDANSETRON 4 MG/2 ML VIAL ONE (04:49)
--- NOTE | 2022-02-04 04:58 | EDPHYS ---
Physician Documentation [facility] Name: Umer Hammonds Age: 71 yrs Sex: Male : 1950 Arrival Date: 02/04/2022 Time: 03:35 Bed 18 Private MD: ED Physician Geneva Bolanos HPI: 02/04 04:52 This 71 yrs old Male presents to ER via EMS with complaints of Fall Injury. [facility] 04:52 71-year-old male with history of COPD, CHF, dementia, hospice patient, presents to the [facility] ED with chief complaint right shoulder pain secondary to mechanical ground-level fall at approximately 4 AM today. Patient was seen 2 days ago for a similar fall for which she sustained facial and head injuries and had negative CT scans of the affected areas. Today's injury is isolated to the right shoulder and patient denies hitting head and complains of no headache, loss of consciousness, neck pain, facial pain, chest pain, back pain, extremity pain other than the right shoulder.. Historical: - Allergies: 03:49 Latex, Natural Rubber; kd3 - Home Meds: 03:49 apixaban 5 mg Oral tab 1 tab 2 times per day [Active]; atorvastatin 20 mg Oral tab 1 kd3 tab once daily [Active]; cyanocobalamin (vitamin B-12) oral [Active]; cholecalciferol (vitamin D3) 1,000 unit Oral 2 tab twice a day [Active]; aspirin 81 mg Oral chew 1 tab once daily [Active]; furosemide 40 mg Oral tab 1 tab 2 times per day [Active]; fluoxetine 40 mg Oral cap 1 cap once daily [Active]; Namenda 10 mg Oral tab 1 tab 2 times per day [Active]; oxcarbazepine 300 mg Oral tab 1 tab 2 times per day [Active]; metolazone 2.5 mg Oral tab 1 tab once daily [Active]; sennosides 8.6 mg Oral tab 2 tabs twice a day [Active]; spironolactone 25 mg Oral tab 1 tab 2 times per day [Active]; polyethylene glycol 3350 17 gram Oral pwpk 1 packet once daily [Active]; tizanidine 4 mg Oral tab 1 tab twice a day [Active]; - PMHx: 03:49 Chronic obstructive lung disease; Congestive heart failure; Dementia; diabetes kd3 mellitus; depressive disorder; - PSHx: 03:49 Morphine pump; kd3 - Immunization history:: Adult Immunizations up to date. - Social history:: Smoking status: unknown. - Immunization history: Last tetanus immunization: - up to date. ROS: 04:53 Constitutional: Negative for fever, chills, and weight loss, Eyes: Negative for injury, sp3 pain, redness, and discharge, Neck: Negative for injury, pain, and swelling, Cardiovascular: Negative for chest pain, palpitations, and edema, Respiratory: Negative for shortness of breath, cough, wheezing, and pleuritic chest pain, Abdomen/GI: Negative for abdominal pain, nausea, vomiting, diarrhea, and constipation, Back: Negative for injury and pain, Neuro: Negative for headache, weakness, numbness, tingling, and seizure, Psych: Negative for depression, anxiety, suicide ideation, homicidal ideation, and hallucinations. 04:53 All other systems are negative. Exam: 04:53 Constitutional: This is a well developed, well nourished patient who is awake, alert, sp3 and in no acute distress. Neck: Trachea midline, no thyromegaly or masses palpated, and no cervical lymphadenopathy. Supple, full range of motion without nuchal rigidity, or vertebral point tenderness. No Meningismus. Chest/axilla: Normal chest wall appearance and motion. Nontender with no deformity. No lesions are appreciated. Cardiovascular: Regular rate and rhythm with a normal S1 and S2. No gallops, murmurs, or rubs. Normal PMI, no JVD. No pulse deficits. Respiratory: Lungs have equal breath sounds bilaterally, clear to auscultation and percussion. No rales, rhonchi or wheezes noted. No increased work of breathing, no retractions or nasal flaring. Abdomen/GI: Soft, non-tender, with normal bowel sounds. No distension or tympany. No guarding or rebound. No evidence of tenderness throughout. Skin: Warm, dry with normal turgor. Normal color with no rashes, no lesions, and no evidence of cellulitis. 04:53 Head/face: Ecchymoses and mild swelling of the forehead and face are noted. CT scans of these areas were negative for significant findings 2 days ago. No new injuries or pain on these areas are noted.. 04:53 Musculoskeletal/extremity: His range of motion of the right shoulder secondary to pain. Anterior fullness noted. Distal neurovascular exam is normal. Range of motion is also normal.. Vital Signs: 03:44 BP 127 / 72; Pulse 42; Resp 18; Temp 98.5; Pulse Ox 99% on 2 lpm NC; Weight 54.43 kg; kd3 Height 5 ft. 4 in. (162.56 cm); 04:06 BP 104 / 50; Pulse 89; Resp 19; Pulse Ox 100% on 2 lpm NC; kd3 05:19 BP 105 / 64; Pulse 99; Resp 18; Pulse Ox 94% on R/A; kd3 03:44 Body Mass Index 20.60 (54.43 kg, 162.56 cm) kd3 Linn Coma Score: 05:16 Eye Response: spontaneous(4). Verbal Response: oriented(5). Motor Response: obeys kd3 commands(6). Total: 15. Trauma Score (Adult): 05:16 Eye Response: spontaneous(1); Verbal Response: oriented(1); Motor Response: obeys kd3 commands(2); Systolic BP: > 89 mm Hg(4); Respiratory Rate: 10 to 29 per min(4); Linn Score: 15; Trauma Score: 12 MDM: 04:17 Patient medically screened. sp3 04:55 Data reviewed: vital signs, nurses notes. ED course: 71-year-old male with multiple sp3 past medical history presents with right anterior shoulder fullness. X-ray demonstrates humeral head fracture with anterior movement of the shaft of the humerus. Reduction of this is not indicated. There is no tenting of the skin. Distal exam is normal. We will discharge patient home with a sling and follow-up with orthopedics. Pain control with IV narcotics as needed. Patient has a morphine pump as a part of his home hospice program and has a pain control regimen already in place. I have educated patient and daughter who will be taking care of him also with whom he lives with on care routine and precautions that are necessary.. 02/04 03:43 Order name: CT Traumagram (Head C Spine CAP wo con) sp3 02/04 04:02 Order name: Shoulder Right (2 View) XRAY kd3 02/04 03:43 Order name: IV Saline Lock; Complete Time: 04:07 sp3 Administered Medications: 04:07 Drug: fentaNYL (PF) 25 mcg Route: IVP; Site: left forearm; kd3 05:19 Follow up: Response: No adverse reaction kd3 04:47 Drug: Zofran (Ondansetron) 4 mg Route: IVP; Site: right forearm; kd3 05:18 Follow up: Response: No adverse reaction kd3 04:47 Drug: Dilaudid (HYDROmorphone) 1 mg Route: IVP; Site: right forearm; kd3 05:18 Follow up: Response: No adverse reaction kd3 Disposition Summary: 02/04/22 04:58 Discharge Ordered Location: Home sp3 Condition: Stable sp3 Diagnosis - We will head fracture with also longitudinal fracture of the proximal humeral neck. sp3 Followup: sp3 - With: Sanket Ku MD - When: Upon discharge from the Emergency Department - Reason: Recheck today's complaints, Continuance of care Discharge Instructions: - Discharge Summary Sheet sp3 - Humerus Fracture Treated With Immobilization sp3 Forms: - Medication Reconciliation Form sp3 - Thank You Letter sp3 - Antibiotic Education sp3 - Prescription Opioid Use sp3 Signatures: Dispatcher [employer] EDMS Geneva Bolanos MD MD sp3 Temi Esteves RN RN kd3 Corrections: (The following items were deleted from the chart) 04:24 03:47 Head C Spine Cap Wo Con ordered. EDMS EDMS
--- NOTE | 2022-02-04 04:58 | ER ---
Nurse's Notes [facility] Name: Umer Hammonds Age: 71 yrs Sex: Male : 1950 Arrival Date: 02/04/2022 Time: 03:35 Bed 18 Private MD: Diagnosis: We will head fracture with also longitudinal fracture of the proximal humeral neck. Presentation: 02/04 03:44 Chief complaint: EMS states: Pt is from home and fell from a standing position to the 3 right side onto some concrete. Pt has deformity of the right shoulder, possibly indicating a shoulder dislocation. Pt has significant bruising to the face and around the eyes due to a previous fall on the . This current fall was unwitnessed. Pt denies LOC and states that he doesn't think he hit his head. Pt given a gram of Tylenol PO en route and placed on 2 L N/C due to O2 in the low 80's. PT still reporting significant pain. Coronavirus screen: Vaccine status: Patient reports receiving the 2nd dose of the covid vaccine. Ebola Screen: No symptoms or risks identified at this time. Initial Sepsis Screen: Does the patient meet any 2 criteria? No. Patient's initial sepsis screen is negative. Does the patient have a suspected source of infection? No. Patient's initial sepsis screen is negative. Risk Assessment: Do you want to hurt yourself or someone else? Patient reports no desire to harm self or others. Onset of symptoms was February 04, 2022. 03:44 Method Of Arrival: EMS: [facility] kd3 03:44 Acuity: RAUL 3 kd3 05:17 Care prior to arrival: None. Mechanism of Injury: Fall from standing position. Trauma kd3 event details: Injury occurred in the [facility]. Triage Assessment: 03:49 General: Appears uncomfortable, Behavior is calm, cooperative. Pain: Complains of pain kd3 in anterior aspect of right shoulder. Neuro: Level of Consciousness is awake, alert, obeys commands, Oriented to person, place, time, situation. Respiratory: Airway is patent Trachea midline Respiratory effort is even, unlabored, Respiratory pattern is regular, symmetrical. Trauma Activation: Physician: ED Physician; Name: BOLANOS; Notified At: ; Arrived At: Physician: General Surgeon; Name: ; Notified At: ; Arrived At: Physician: Radiology; Name: ; Notified At: ; Arrived At: Physician: Respiratory; Name: ; Notified At: ; Arrived At: Physician: Lab; Name: ; Notified At: ; Arrived At: Historical: - Allergies: 03:49 Latex, Natural Rubber; kd3 - Home Meds: 03:49 apixaban 5 mg Oral tab 1 tab 2 times per day [Active]; atorvastatin 20 mg Oral tab 1 kd3 tab once daily [Active]; cyanocobalamin (vitamin B-12) oral [Active]; cholecalciferol (vitamin D3) 1,000 unit Oral 2 tab twice a day [Active]; aspirin 81 mg Oral chew 1 tab once daily [Active]; furosemide 40 mg Oral tab 1 tab 2 times per day [Active]; fluoxetine 40 mg Oral cap 1 cap once daily [Active]; Namenda 10 mg Oral tab 1 tab 2 times per day [Active]; oxcarbazepine 300 mg Oral tab 1 tab 2 times per day [Active]; metolazone 2.5 mg Oral tab 1 tab once daily [Active]; sennosides 8.6 mg Oral tab 2 tabs twice a day [Active]; spironolactone 25 mg Oral tab 1 tab 2 times per day [Active]; polyethylene glycol 3350 17 gram Oral pwpk 1 packet once daily [Active]; tizanidine 4 mg Oral tab 1 tab twice a day [Active]; - PMHx: 03:49 Chronic obstructive lung disease; Congestive heart failure; Dementia; diabetes kd3 mellitus; depressive disorder; - PSHx: 03:49 Morphine pump; kd3 - Immunization history:: Adult Immunizations up to date. - Social history:: Smoking status: unknown. - Immunization history: Last tetanus immunization: - up to date. Screenin:50 Abuse screen: Denies threats or abuse. Denies injuries from another. Nutritional kd3 screening: No deficits noted. Tuberculosis screening: No symptoms or risk factors identified. Fall Risk Fall in past 12 months (25 points). Primary Survey: 05:16 NO uncontrolled hemorrhage observed. Breathing/Chest: Spontaneous respiratory effort, kd3 equal unlabored respirations, breath sounds clear bilaterally, regular pattern, symmetrical chest rise and fall. Circulation: No external hemorrhage present. Regular and strong central pulse, skin warm/dry/normal color. Disability Pupils are equal, round, reactive to light and accommodation. Exposure/Environment: There is no evidence of uncontrolled external bleeding. Reassessment Breathing: Spontaneous respiratory effort, equal unlabored respirations, breath sounds clear bilaterally, regular pattern with symmetrical chest rise and fall. Circulation: No external hemorrhage noted. Regular and strong central pulse, skin warm/dry/normal color. Disability: Pupils Pupils are equal, round, reactive to light and accomodation. Assessment: 04:07 Reassessment: see triage. kd3 Vital Signs: 03:44 BP 127 / 72; Pulse 42; Resp 18; Temp 98.5; Pulse Ox 99% on 2 lpm NC; Weight 54.43 kg; kd3 Height 5 ft. 4 in. (162.56 cm); 04:06 BP 104 / 50; Pulse 89; Resp 19; Pulse Ox 100% on 2 lpm NC; kd3 05:19 BP 105 / 64; Pulse 99; Resp 18; Pulse Ox 94% on R/A; kd3 03:44 Body Mass Index 20.60 (54.43 kg, 162.56 cm) kd3 Alexia Coma Score: 05:16 Eye Response: spontaneous(4). Verbal Response: oriented(5). Motor Response: obeys kd3 commands(6). Total: 15. Trauma Score (Adult): 05:16 Eye Response: spontaneous(1); Verbal Response: oriented(1); Motor Response: obeys kd3 commands(2); Systolic BP: > 89 mm Hg(4); Respiratory Rate: 10 to 29 per min(4); [place] Score: 15; Trauma Score: 12 ED Course: 03:35 Patient arrived in ED. ds4 03:42 Geneva Bolanos MD is Attending Physician. sp3 03:44 Temi Esteves, JADE is Primary Nurse. kd3 03:49 Triage completed. kd3 03:49 Arm band placed on right wrist. kd3 03:50 Bed in low position. Side rails up X2. kd3 04:33 Shoulder Right (2 View) XRAY In Process Unspecified. EDMS 04:56 Sanket Ku MD is Referral Physician. sp3 05:16 Patient maintains SpO2 saturation greater than 95% on room air. kd3 05:17 No provider procedures requiring assistance completed. IV discontinued, intact, kd3 bleeding controlled, No redness/swelling at site. Pressure dressing applied. 05:18 Thermoregulation: warm blanket given to patient. kd3 Administered Medications: 04:07 Drug: fentaNYL (PF) 25 mcg Route: IVP; Site: left forearm; kd3 05:19 Follow up: Response: No adverse reaction kd3 04:47 Drug: Zofran (Ondansetron) 4 mg Route: IVP; Site: right forearm; kd3 05:18 Follow up: Response: No adverse reaction kd3 04:47 Drug: Dilaudid (HYDROmorphone) 1 mg Route: IVP; Site: right forearm; kd3 05:18 Follow up: Response: No adverse reaction kd3 Medication: 03:50 VIS not applicable for this client. kd3 Intake: 05:16 PO: 150ml (Water); Total: 150ml. kd3 Output: 05:16 Urine: 300ml (Voided); Total: 300ml. kd3 Outcome: 04:58 Discharge ordered by . sp3 05:18 Discharged to home via wheelchair, with family. kd3 05:18 Condition: stable 05:18 Discharge instructions given to patient, family, Instructed on discharge instructions, follow up and referral plans. Demonstrated understanding of instructions, follow-up care. 05:18 Patient's length of stay was not longer than 2 hours. kd3 05:19 Patient left the ED. kd3 Signatures: Dispatcher [employer] Kenyon James ds4 Geneva Bolanos MD MD sp3 Temi Esteves RN RN kd3
[2022-02-04 05:39] VITALS: BP 104/50; TEMP 98.5; O2SAT 100
--- NOTE | 2022-02-06 12:30 | RAD REPORT ---
EXAM DESCRIPTION: RAD - Shoulder Right 2 View - 02/04/2022 4:31 am CLINICAL HISTORY: 71 years Male PAIN Shoulder Right 2 View TECHNIQUE: 2 x-ray views of the right shoulder were performed on 02/04/2022 at 4:24 AM. COMPARISON: None FINDINGS: There is a comminuted mildly displaced and mildly impacted fracture through the right javid ral neck. The glenohumeral joint appears intact as does the acromioclavicular joint. There are mild d egenerative changes of the right AC joint. No definite additional acute fractures are identified. No focal lytic or sclerotic bone lesions are seen. There is narrowing of the glenohumeral joint. Bone mineralization is normal. There is soft tissue swelling surrounding the right shoulder. The visualized portions of the right he mithorax are unremarkable. IMPRESSION: 1. Comminuted mildly displaced and mildly impacted fracture through the right humeral neck with surrounding soft tissue swelling. 2. Degenerative changes of the right AC joint and glenohumeral joint. Electronically signed by: Danielle Sullivan DO 02/04/2022 5:36 AM CDT Due to temporary technical issues with the PACS/Fluency reporting system, reports are being signed by the in house radiologists without review as a courtesy to insure prompt reporting. The interpreting radiologist is fully responsible for the content of the report.
== END 2022-02-04 05:19 | disposition home or self-care (01) ==
LOC: ER 03:30
PROC: 2W38X1Z Immobilization of Right Upper Extremity using Splint (ICD-10-PCS; principal; 2022-02-04)
DX: S42.211A Unspecified displaced fracture of surgical neck of right humerus, initial encounter for closed fracture (principal); J44.9 Chronic obstructive pulmonary disease, unspecified; I50.9 Heart failure, unspecified; E11.9 Type 2 diabetes mellitus without complications; F32.A Depression, unspecified; F03.90 Unspecified dementia, unspecified severity, without behavioral disturbance, psychotic disturbance, mood disturbance, and anxiety; Z79.82 Long term (current) use of aspirin; Z91.040 Latex allergy status; Z91.048 Other nonmedicinal substance allergy status
CPT/HCPCS: 73030; 99284; 29105; J3010; J1170; J2405